=== PATIENT | female | born 1955 | race African-American/Black ===

== ENCOUNTER 2020-07-22 14:44 | Outpatient (REF) | payer MEDICARE, SELFPAY ==
[2020-07-22 16:42] LABS: Glucose Urine UA NEG (NEG); Leukocyte Esterase Urine 3+ (NEG); Nitrite Urine POS (NEG); PH 6.5 (5.0-8.0); Specific Gravity - Urine 1.015 (1.005-1.025); Urine Blood 3+ (NEG); Urine Ketones 5 MG/DL (NEG); Urine Protein 2+ MG/DL (NEG-TRACE)
[2020-07-22 16:47] LABS: Appearance Urine TURBID; Color Urine ORANGE
[2020-07-22 17:15] LABS: Bacteria Urine 3+ /LPF; Squamous Epithelial Cell Urine TRACE /LPF
== END 2020-07-22 14:45 | disposition home or self-care (01) ==
LOC: HO.HMGCLNP 14:44
PROVIDERS: Visit Provider Internal Medicine
DX: R35.0 Frequency of micturition (principal)
CPT/HCPCS: 81001; 87086; 87088; 87186

== ENCOUNTER 2020-10-08 14:56 | Outpatient (REF) | payer MEDICARE, SELFPAY ==
[2020-10-08 15:08] LABS: Glucose Urine UA NEG (NEG); Leukocyte Esterase Urine 3+ (NEG); Nitrite Urine POS (NEG); PH 6.5 (5.0-8.0); UACC Culture Trigger YES; Urine Blood 2+ (NEG); Urine Ketones NEG (NEG); Urine Protein 2+ MG/DL (NEG-TRACE)
[2020-10-08 15:10] LABS: Appearance Urine CLOUDY; Color Urine YELLOW
[2020-10-08 15:23] LABS: Bacteria Urine 3+ /LPF; Mucus Urine 1+ /LPF; Squamous Epithelial Cell Urine 1+ /LPF; WBC Urine TNTC /HPF (0-4)
== END 2020-10-08 14:57 | disposition home or self-care (01) ==
LOC: HO.LNP 14:56
PROVIDERS: Visit Provider Internal Medicine
DX: R35.0 Frequency of micturition (principal)
CPT/HCPCS: 81001; 81003; 87086; 87088; 87186

== ENCOUNTER 2020-11-13 10:15 | Inpatient (IN) | payer MEDICARE, SELFPAY ==
[2020-11-13] VITALS (7 sets, daily range): BP systolic 119–150; BP diastolic 60–75; PULSE 97–120; RESP 17–20; TEMP 36.2–36.8; O2SAT 90–97; BMI 60.2; BMI 56.2
--- NOTE | ~2020-11-13 | CT_ITS ---
EXAMINATION: CT ABDOMEN AND PELVIS WITH CONTRAST CLINICAL INFORMATION: 65-year-old female with lower abdominal and left flank pain. Rule out diverticulitis. COMPARISON: CT abdomen pelvis 07/14/2019 TECHNIQUE: Multidetector volumetric images were obtained from the superior aspect of the liver through the pubic symphysis following administration 100 mL of Omnipaque 350 intravenous contrast. Sagittal and coronal reformatted images were obtained on the technologist's workstation. Examination limited due to quantum mottle artifact from patient body habitus. This CT examination was performed using dose optimization techniques as appropriate, variously including the following: *Automated exposure control *Adjustment of mA and/or kV according to patient size (this includes techniques or standardized protocols for targeted exams where dose is matched to indication/reason for exam; i.e. extremities or head) *Use of iterative reconstruction technique DLP: 1466 mGy-cm FINDINGS: Visualized lung bases demonstrate mild dependent atelectasis. Numerous hypodensities are again noted throughout the liver, some of which demonstrate cystic characteristics and others which are too small to accurately characterize. The gallbladder is physiologically distended. Suspected sludge within the gallbladder. Fatty atrophy of the pancreas. The spleen and adrenal glands are unremarkable. Symmetrically enhancing kidneys. No hydronephrosis. Stable approximately 5 cm left renal cyst. Normal caliber loops of small bowel. There is a moderate stool burden throughout the colon. There is prominent mucosal thickening of the sigmoid colon with associated extensive diverticular changes. There is prominent pericolonic stranding in this region. Normal appendix. Nonaneurysmal abdominal aorta which demonstrates moderate atherosclerotic disease. No retroperitoneal lymphadenopathy. The bladder is decompressed and therefore not accurately evaluated. A localized area of air within the pelvis is suspected to be within the nondependent portion of the bladder, particularly when imaged in the sagittal view. A small amount of free pelvic fluid is noted. Diffuse osteopenia with degenerative changes of the spine. CT/CT abdomen pelvis w con IMPRESSION: Active diverticulitis of the sigmoid colon. No definitive abscess identified, however, a small abscess cannot be excluded. Further evaluation can be obtained with repeat imaging with oral contrast, however, I believe it would likely be more beneficial to follow-up with repeat imaging of this area in a few days status post treatment.
--- NOTE | 2020-11-13 10:46 | ED_ITS ---
HPI - Female Genitourinary General Chief complaint: Urogenital-Female Stated complaint: UTI Time Seen by Provider: 11/13/20 10:29 Source: patient Mode of arrival: ambulatory Limitations: no limitations History of Present Illness HPI Narrative: 65-year-old female who presents emergency department for evaluation of urinary tract infection like symptoms and lower abdominal pain. The patient states that she has been sick for approximately 1 week. She has noted urinary frequency and dysuria. She states she also has itchiness in her vaginal area. She denied fever but states she did have shaking chills at home. She is also complaining of abdominal pain. She points to her left lower quadrant and suprapubic area when asked to localize the pain. She describes the pain as a constant, pressure-like sensation which is 7/10 at its worst. The patient states that over the last 3 months she has had to urinary tract infection prior to that she does not have a history of frequent urinary tract infections. She was seen at an urgent care clinic and found to have a positive urinalysis and referred to the emergency department for further evaluation of her abdominal pain and possible urinary tract infection. I did review the patient's records, she was diagnosed with adenocarcinoma of the colon diagnosed June 2018 but declined further treatment. She also has a history obstructive sleep apnea/restrictive lung disease, pulmonary embolism, hypertension, COPD on 3-4 L via nasal cannula. The patient states she has not had a COVID-19 infection. She receives the [employer] COVID-19 vaccination on 11/03/2020. Related Data Home Medications Medication Instructions Recorded Confirmed albuterol sulfate 90 mcg/actuation INHALATION 05/13/20 05/13/20 aerosol inhaler diltiazem HCl 120 mg mg PO 05/13/20 05/13/20 capsule,extended release 24 hr diltiazem HCl 180 mg mg PO 05/13/20 05/13/20 capsule,extended release 24 hr, controlled fluticasone furoate 100 INHALATION 05/13/20 05/13/20 mcg/actuation blister powder for inhalation tiotropium 2.5 mcg-olodaterol 2.5 INHALATION 05/13/20 05/13/20 mcg/actuation mist for inhalation Previous Rx's Medication Instructions Recorded bupropion HCl 150 mg 24 hr tablet, 150 mg PO QAM #90 tab 04/12/20 extended release gabapentin 100 mg capsule See Rx Instructions PO .COMPLEX 09/13/20 #360 cap nitrofurantoin macrocrystal 100 mg 100 mg PO Q12H 10 Days #20 cap 10/08/20 capsule tramadol 50 mg tablet 50 mg PO DAILY PRN #30 tab 10/18/20 Allergies Allergy/AdvReac Type Severity Reaction Status Date / Time amoxicillin [AMOXICILLIN] Allergy Unknown ITCHING, Verified 11/13/20 09:34 Rash, itching lactose [LACTOSE] Allergy Unknown GI UPSET Verified 11/13/20 09:34 Review of Systems Review of Systems: Yes all other systems are reviewed and are negative [facility] Past Medical History [facility] Narrative: The patient denies tobacco, alcohol and drug use. Medical History Colon cancer History of pulmonary embolism Obstructive sleep apnea Osteoarthritis of knees, bilateral Paroxysmal atrial fibrillation Radiculopathy affecting upper extremity Surgical History History of total hysterectomy Family History Family History Other Family history non-contributory Social History Social History Alcohol intake: never Smoking Status: Former smoker Advance Directives: No Advance Directives Information Provided: Yes Patient : No Physical Exam Vital Signs: Vital Signs: Last Vital Signs Temp 98.3 F 11/13/20 10:15 Pulse 98 11/13/20 14:33 Resp 18 11/13/20 14:33 BP 150/65 H 11/13/20 14:33 Pulse Ox 90 L 11/13/20 14:33 Oxygen Flow Rate 4 11/13/20 10:15 Body Mass Index 60.2 Const: General: cooperative Nutritional Appearance: obese morbidly obese Orientation/consciousness: oriented to person and oriented to place Limitations: no limitations HENMT: Head: Yes normal to inspection, Yes normocephalic and Yes atraumatic Ears: external ears normal General nose exam: Normal external nose present Face and sinus: Yes normal facial exam Mouth: Normal oral and palatal mucosa present Throat: Yes posterior oropharynx normal Eyes: Periorbital: periorbital findings normal Eyelids: Yes eyelids normal Conjunctivae: conjunctivae normal Sclerae: sclerae normal Corneas: corneas normal Pupils: Equal, round and reactive pupils present Direct Ophthalmoscopy: normal light reflex Neck: Neck: Yes full ROM, Yes no lymphadenopathy, Yes no meningeal signs, Yes trachea midline and Yes supple Chest: Chest palpation & inspection: normal inspection of the chest and normal palpation of entire chest wall Resp: Effort & Inspection: normal respiratory effort and able to speak in complete sentences Auscultation: clear to auscultation bilaterally Cardio: Rate: regular rate Rhythm: regular rhythm Heart sounds: S1 normal heart sound present, S2 normal heart sound present and no murmurs GI: Inspection: Yes normal to inspection Palpation (GI): Soft to palpation, Tenderness to palpation present (GI) in the LLQ (Moderate) and suprapubicly (Moderate), no guarding, not rigid and No hepatosplenomegaly present : General: Yes CVA tenderness on the left (Moderate) Back/Spine/Pelvis: Back: CVA tenderness Cervical Spine: normal cervical lordosis Thoracic/Lumbar Spine: thoracic and lumbar spine normal to inspection Skin: Lesions: no lesions Rashes: no rashes Wounds: no wounds Neuro: General: oriented to person, oriented to place and no meningeal signs Cranial nerves: Yes CN's II-XII intact bilaterally and Yes Equal, round and reactive pupils present Cognition (Neuro): normal cognition Motor exam (neuro): 5/5 motor strength present throughout Extrem: General: Yes normal to inspection and Yes full ROM Psych: Appearance: well kempt Mental Status: mental status grossly normal Speech and movement: Normal speech and movement present Affect: normal affect Attitude: cooperative Thought process: Normal thought process present Thought content: Normal thought content present Course Course Course Narrative: 65-year-old female who presents emergency department for evaluation of frequency, dysuria and lower abdominal pain. Examination did reveal left lower quadrant and suprapubic tenderness as well as left-sided CVA tenderness. I did order a laboratory evaluation and CT scan of the abdomen pelvis to rule out diverticulitis versus pyelonephritis. The patient's pain was treated with Toradol 30 mg IV. She was also ordered to get normal saline IV x1 L. the was also ordered to get ceftriaxone 1 g IV for UTI. 1550: The patient's laboratory evaluation [place] [address], she was anemic with an H&H of 9.7 and 31.5 and she had an elevated platelet count of 261171. The patient's urinalysis revealed 2+ blood, positive nitrites and 2+ leukocyte esterase. Microscopic revealed 50-75 red blood cells and too numerous to count white blood cells. CT scan of the abdomen pelvis with IV contrast did not reveal pyelonephritis but the patient does have acute diverticulitis of the sigmoid colon with no definite abscess noted by the radiologist. The patient was treated with ceftriaxone 1 g IV after I received her urinalysis. Given the diagnosis of diverticulitis I will add Flagyl 500 mg IV. I will discuss the patient's presentation with the covering hospitalist. 1608: I did discuss the patient's presentation with the covering hospitalist nurse practitioner Elle Ramirez and the patient will be admitted for further management. The patient did tell me that her pain was coming back she is also having significant burning in her suprapubic area. She was ordered to get morphine 4 mg IV and Pyridium 200 mg orally. MDM - Female Genitourinary Lab Data Result diagrams: 11/13/20 11:33 11/13/20 11:33 Labs: Lab Results 11/13/20 11/13/20 11/13/20 Range/Units 11:33 11:33 11:33 WBC 17.1 H (4.8-10.8) X10*3/uL RBC 3.97 L (4.20-5.50) X10*6/uL Hgb 9.7 L (12.0-16.0) g/dl Hct 31.5 L (37-47) % MCV 79.3 L (80-98) fL MCH 24.4 L (27.0-33.0) pg MCHC 30.8 L (31.0-35.0) g/dl RDW 17.2 H (11.0-16.0) % Plt Count 452 H (160-400) X10*3/uL MPV 8.9 L (9.4-12.3) fL Immature Gran % (Auto) 0.4 (0.0-0.4) % Neut % (Auto) 77.0 H (45-73) % Lymph % (Auto) 12.1 L (20-40) % [place] % (Auto) 9.1 (2-11) % Eos % (Auto) 1.1 (0-4) % Baso % (Auto) 0.3 (0-2) % Lymph # (Auto) 2.1 (1.2-4.9) X10*3/uL [place] # (Auto) 1.6 H (0.1-1.2) X10*3/uL Eos # (Auto) 0.2 (0.0-0.4) X10*3/uL Baso # (Auto) 0.1 (0.0-0.2) X10*3/uL Abs Immat Gran (auto) 0.07 H (0.00-0.03) X10*3/uL Absolute Neuts (auto) 13.2 H (2.0-8.3) X10*3/uL Absolute Nucleated RBC 0.000 (0.0-0.012) X10*3/uL Nucleated RBC % (auto) 0.0 (0.0-0.2) /100WBC Smear Tech's Comments VERIFIED Sodium 140 (135-145) mmol/L Potassium 3.4 (3.3-5.1) mmol/L Chloride 93 L (96-108) mmol/L Carbon Dioxide 37 H (22-29) mmol/L Anion Gap 13 (12-20) BUN 10 (9-16) mg/dL Creatinine 0.64 (0.5-1.4) mg/dL Estim Creat Clear Calc 132.3 Estimated GFR > 60 Random Glucose 113 (60-115) mg/dL Lactic Acid 1.3 (0.5-2.0) mmol/L Calcium 8.5 (8.4-10.2) mg/dL Total Bilirubin 0.3 (0.0-1.0) mg/dL AST 15 (5-31) U/L ALT 15 (0-31) U/L Alkaline Phosphatase 93 (39-117) U/L Total Protein 6.5 (6.5-8.0) g/dL Albumin 3.2 L (3.5-5.0) g/dL Lipase < 4 L (8-78) U/L Urine Color Urine Appearance Urine pH (5.0-8.0) Ur Specific [place] (1.005-1.025) Urine Protein (NEG-TRACE) MG/DL Urine Glucose (UA) (NEG) MG/DL Urine Ketones (NEG) MG/DL Urine Blood (NEG) Urine Nitrite (NEG) Ur Leukocyte Esterase (NEG) Urine RBC (0) /HPF Urine WBC (0-4) /HPF Ur Squamous Epith Cells /LPF Urine Bacteria /LPF 11/13/20 Range/Units 13:03 WBC (4.8-10.8) X10*3/uL RBC (4.20-5.50) X10*6/uL Hgb (12.0-16.0) g/dl Hct (37-47) % MCV (80-98) fL MCH (27.0-33.0) pg MCHC (31.0-35.0) g/dl RDW (11.0-16.0) % Plt Count (160-400) X10*3/uL MPV (9.4-12.3) fL Immature Gran % (Auto) (0.0-0.4) % Neut % (Auto) (45-73) % Lymph % (Auto) (20-40) % [place] % (Auto) (2-11) % Eos % (Auto) (0-4) % Baso % (Auto) (0-2) % Lymph # (Auto) (1.2-4.9) X10*3/uL [place] # (Auto) (0.1-1.2) X10*3/uL Eos # (Auto) (0.0-0.4) X10*3/uL Baso # (Auto) (0.0-0.2) X10*3/uL Abs Immat Gran (auto) (0.00-0.03) X10*3/uL Absolute Neuts (auto) (2.0-8.3) X10*3/uL Absolute Nucleated RBC (0.0-0.012) X10*3/uL Nucleated RBC % (auto) (0.0-0.2) /100WBC Smear Tech's Comments Sodium (135-145) mmol/L Potassium (3.3-5.1) mmol/L Chloride (96-108) mmol/L Carbon Dioxide (22-29) mmol/L Anion Gap (12-20) BUN (9-16) mg/dL Creatinine (0.5-1.4) mg/dL Estim Creat Clear Calc Estimated GFR Random Glucose (60-115) mg/dL Lactic Acid (0.5-2.0) mmol/L Calcium (8.4-10.2) mg/dL Total Bilirubin (0.0-1.0) mg/dL AST (5-31) U/L ALT (0-31) U/L Alkaline Phosphatase (39-117) U/L Total Protein (6.5-8.0) g/dL Albumin (3.5-5.0) g/dL Lipase (8-78) U/L Urine Color DARK YELLOW Urine Appearance TURBID Urine pH 7.0 (5.0-8.0) Ur Specific [place] 1.020 (1.005-1.025) Urine Protein 3+ H (NEG-TRACE) MG/DL Urine Glucose (UA) 100 H (NEG) MG/DL Urine Ketones 5 (NEG) MG/DL Urine Blood 3+ H (NEG) Urine Nitrite POS H (NEG) Ur Leukocyte Esterase 2+ H (NEG) Urine RBC TNTC H (0) /HPF Urine WBC TNTC H (0-4) /HPF Ur Squamous Epith Cells 2+ /LPF Urine Bacteria 3+ /LPF Discharge Plan Discharge Clinical Impression: Pyelonephritis, Diverticulitis Patient Disposition: Admitted As Inpatient
[2020-11-13 11:38] LABS: Basophils Absolute Auto 0.1 X10*3/uL (0.0-0.2); Basophils Percent Auto 0.3 % (0-2); Eosinophils Absolute Auto 0.2 X10*3/uL (0.0-0.4); Eosinophils Percent Auto 1.1 % (0-4); Hematocrit 31.5 % (37-47); Hemoglobin 9.7 g/dl (12.0-16.0); Imm Gran Abs Auto 0.07 X10*3/uL (0.00-0.03); Imm Gran Pct Auto 0.4 % (0.0-0.4); Lymphocytes Absolute Auto 2.1 X10*3/uL (1.2-4.9); Lymphocytes Percent Auto 12.1 % (20-40); MANUAL DIFF FLAG SCAN; Mean Corpuscular HGB Conc 30.8 g/dl (31.0-35.0); Mean Corpuscular Hemoglobin 24.4 pg (27.0-33.0); Mean Corpuscular Volume 79.3 fL (80-98); Mean Platelet Volume 8.9 fL (9.4-12.3); Monocytes Absolute Auto 1.6 X10*3/uL (0.1-1.2); Monocytes Percent Auto 9.1 % (2-11); Neutrophils Absolute Auto 13.2 X10*3/uL (2.0-8.3); Platelet Count 452 X10*3/uL (160-400); Red Blood Count 3.97 X10*6/uL (4.20-5.50); Red Cell Distribution Width 17.2 % (11.0-16.0); SCAN SMEAR FLAG 1; White Blood Count 17.1 X10*3/uL (4.8-10.8)
[2020-11-13 12:07] LABS: Lactic Acid 1.3 mmol/L (0.5-2.0)
[2020-11-13] MEDS: 0.9 % Sodium Chloride 1,000 ML 999 ML IV (12:16)
[2020-11-13 12:17] LABS: SLIDE REVIEW VERIFIED
--- NOTE | 2020-11-13 12:21 | PC.NURSE ---
PT IS DIFFICULT STICK, NEEDED US GUIDED IV AND ONLY ABLE TO OBTAIN #22, PHLEBOTOMY CALLED FOR ADDITIONAL BLOOD CULTURES
[2020-11-13 12:28] LABS: Alanine Aminotransferase 15 U/L (0-31); Albumin Level 3.2 g/dL (3.5-5.0); Alkaline Phosphatase 93 U/L (39-117); Anion Gap 13 (12-20); Aspartate Amino Transferase 15 U/L (5-31); Bilirubin Total 0.3 mg/dL (0.0-1.0); Blood Urea Nitrogen 10 mg/dL (9-16); Calcium 8.5 mg/dL (8.4-10.2); Carbon Dioxide 37 mmol/L (22-29); Chloride 93 mmol/L (96-108); Creatinine Clr Calc Pharmacy 132.3; Estimated Glomerular Filt Rate > 60; Glucose Random 113 mg/dL (60-115); Lipase < 4 U/L (8-78); Potassium 3.4 mmol/L (3.3-5.1); Sodium 140 mmol/L (135-145); Total Protein 6.5 g/dL (6.5-8.0)
[2020-11-13] MEDS: Ketorolac Tromethamine 30 MG/ML VIAL IVPUSH (12:58)
[2020-11-13] MEDS: cefTRIAXone sodium 1 GM in 0.9 % Sodium Chloride 50 ML IV (13:19)
[2020-11-13 13:22] LABS: Glucose Urine UA 100 MG/DL (NEG); Leukocyte Esterase Urine 2+ (NEG); Nitrite Urine POS (NEG); UACC Culture Trigger YES; Urine Blood 3+ (NEG); Urine Ketones 5 MG/DL (NEG); Urine Protein 3+ MG/DL (NEG-TRACE)
[2020-11-13 13:25] LABS: Appearance Urine TURBID; Color Urine DARK YELLOW
[2020-11-13 13:34] LABS: Bacteria Urine 3+ /LPF; RBC Urine TNTC /HPF (0); Squamous Epithelial Cell Urine 2+ /LPF; WBC Urine TNTC /HPF (0-4)
[2020-11-13] MEDS: iohexoL 350 MG/ML 100 ML INFUS..BTL IV (13:52)
[2020-11-13] MEDS: Morphine Sulfate 4 MG/ML CARTRIDGE IVPUSH (16:55)
--- NOTE | 2020-11-13 16:55 | PM.IMHP ---
History of Present Illness Date of Service: 11/13/20 <Elle Perkins NP - Last Filed: 11/13/20 17:59> Chief Complaint: Abdominal pain <Elle Perkins NP - Last Filed: 11/13/20 17:59> 65-year-old woman presenting to the ER with complaints abdominal pain and urinary tract infection like symptoms. She reports over the last week she has increased urinary frequency and dysuria with vaginal itchiness. She reported chills, right upper lower quadrant abdominal pain that has been constant and pressure-like. She went to urgent care clinic and was found to have a positive urinalysis and was sent to the emergency department for further evaluation. She was noted to have an elevated white cell 17.1, fever. Chronic compensated blood gas. Abd CT showed acute sigmoid diverticulitis. Urinalysis positive for infection. She was given Rocephin, flagyl, IV fluid and pain medication. She will be admitted for further management and treatment of acute diverticulitis in urinary tract infection. <Elle Perkins NP - Last Filed: 11/13/20 17:59> Review of Systems Review of Systems: Denies any recent fever chills or decrease in appetite respiratory denies any shortness of breath coverage production cardiovascular is adjustment of any PND or edema gastrointestinal denies any dysphagia abdominal pain nausea vomiting or diarrhea genitourinary denies any dysuria frequency or hematuria musculoskeletal denies any joint pain or swelling neuropsych denies any weakness or seizures all other systems reviewed are negative <Elle Perkins NP - Last Filed: 11/13/20 17:59> [facility] Medical History: Medical History Anemia Colon cancer COVID-19 vaccine administered History of pulmonary embolism Hx of diverticulitis of colon Hx of recurrent urinary tract infection Obstructive sleep apnea Osteoarthritis of knees, bilateral Paroxysmal atrial fibrillation Pyelonephritis Radiculopathy affecting upper extremity <Elle Perkins NP - Last Filed: 11/13/20 17:59> Family History: Family History Other Family history non-contributory <Elle Perkins NP - Last Filed: 11/13/20 17:59> Surgical History: Surgical History History of total hysterectomy <Elle Perkins NP - Last Filed: 11/13/20 17:59> Social History: Social History Household Members: Family Household Members Other:: 2 Housing: Apartment Do you presently have visiting nurse or other home services: No Alcohol intake: never service: No Current occupational status: unemployed <Elle Perkins NP - Last Filed: 11/13/20 17:59> Meds Allergies/Adverse reactions: Allergies Allergy/AdvReac Type Severity Reaction Status Date / Time amoxicillin [AMOXICILLIN] Allergy Unknown ITCHING, Verified 11/30/20 01:37 Rash, itching lactose [LACTOSE] Allergy Unknown GI UPSET Verified 11/30/20 01:37 <Elle Perkins NP - Last Filed: 11/13/20 17:59> Active Medications: Current Medications Generic Name Dose Route Start Last Admin Trade Name Freq PRN Reason Stop Dose Admin Acetaminophen 650 mg 11/13/20 16:08 Acetaminophen 325 Mg Tablet PO Q6H PRN Pain, Mild (Pain Scale 1-3) Ondansetron HCl 4 mg 11/13/20 16:08 Ondansetron Hcl 4 Mg/2 Ml Vial IVPUSH Q8H PRN Nausea and Vomiting Sodium Chloride 3 ml 11/14/20 00:00 0.9 % Sodium Chloride Flush 3 M[facility] <Elle Perkins NP - Last Filed: 11/13/20 17:59> Home medications: Home Medications Medication Instructions Recorded Confirmed Last Taken Type albuterol sulfate 90 mcg/actuation INHALATION 05/13/20 11/30/20 Unknown History aerosol inhaler diltiazem HCl 120 mg 120 mg PO BID 05/13/20 11/30/20 Unknown History capsule,extended release 24 hr Arnuity Ellipta INHALATION DAILY 11/13/20 11/30/20 Unknown History Stiolto Respimat 2 puff INHALATION DAILY 11/13/20 11/30/20 Unknown History gabapentin 100 mg PO DIRECTED 11/13/20 11/30/20 Unknown History <Elle Perkins NP - Last Filed: 11/13/20 17:59> Physical Exam Vital Signs and Narrative: Vital Signs: Last Vital Signs Temp 98.3 F 11/13/20 10:15 Pulse 98 11/13/20 14:33 Resp 18 11/13/20 14:33 BP 150/65 H 11/13/20 14:33 Pulse Ox 90 L 11/13/20 14:33 Oxygen Flow Rate 4 11/13/20 10:15 Body Mass Index 60.2 <Elle Perkins NP - Last Filed: 11/13/20 17:59> Appearing in no acute distress head is normocephalic atraumatic eyes pupils are PERRLA sclera is anicteric mouth throat mucous membranes are intact and moist neck is supple no lymphadenopathy, no JVD noted lung sounds are clear to auscultation heart regular rate rhythm, clear S1, S2 positive bowel sounds, abdomen is soft, nontender, obese neuro patient is alert x3, no focal deficits <Elle Perkins NP - Last Filed: 11/13/20 17:59> Results Labs CBC and Chem 7: : 11/14/20 05:49 11/14/20 05:49 <Elle Perkins NP - Last Filed: 11/13/20 17:59> Labs: Laboratory Results - last 24 hr 11/13/20 11/13/20 11/13/20 11:33 11:33 11:33 MCV 79.3 L MCH 24.4 L MCHC 30.8 L RDW 17.2 H Plt Count 452 H MPV 8.9 L Immature Gran % (Auto) 0.4 Neut % (Auto) 77.0 H Lymph % (Auto) 12.1 L [place] % (Auto) 9.1 Eos % (Auto) 1.1 Baso % (Auto) 0.3 Lymph # (Auto) 2.1 [place] # (Auto) 1.6 H Eos # (Auto) 0.2 Baso # (Auto) 0.1 Abs Immat Gran (auto) 0.07 H Absolute Neuts (auto) 13.2 H Absolute Nucleated RBC 0.000 Nucleated RBC % (auto) 0.0 Smear Tech's Comments VERIFIED Anion Gap 13 Estim Creat Clear Calc 132.3 Estimated GFR > 60 Random Glucose 113 Lactic Acid 1.3 Calcium 8.5 Total Bilirubin 0.3 AST 15 ALT 15 Alkaline Phosphatase 93 Total Protein 6.5 Albumin 3.2 L Lipase < 4 L Urine Color Urine Appearance Urine pH Ur Specific [place] Urine Protein Urine Glucose (UA) Urine Ketones Urine Blood Urine Nitrite Ur Leukocyte Esterase Urine RBC Urine WBC Ur Squamous Epith Cells Urine Bacteria 11/13/20 13:03 MCV MCH MCHC RDW Plt Count MPV Immature Gran % (Auto) Neut % (Auto) Lymph % (Auto) [place] % (Auto) Eos % (Auto) Baso % (Auto) Lymph # (Auto) [place] # (Auto) Eos # (Auto) Baso # (Auto) Abs Immat Gran (auto) Absolute Neuts (auto) Absolute Nucleated RBC Nucleated RBC % (auto) Smear Tech's Comments Anion Gap Estim Creat Clear Calc Estimated GFR Random Glucose Lactic Acid Calcium Total Bilirubin AST ALT Alkaline Phosphatase Total Protein Albumin Lipase Urine Color DARK YELLOW Urine Appearance TURBID Urine pH 7.0 Ur Specific [place] 1.020 Urine Protein 3+ H Urine Glucose (UA) 100 H Urine Ketones 5 Urine Blood 3+ H Urine Nitrite POS H Ur Leukocyte Esterase 2+ H Urine RBC TNTC H Urine WBC TNTC H Ur Squamous Epith Cells 2+ Urine Bacteria 3+ <Elle Perkins NP - Last Filed: 11/13/20 17:59> Imaging Radiologist's Impressions: Impressions Abdomen/Pelvis CT 11/13/20 10:44 IMPRESSION: Active diverticulitis of the sigmoid colon. No definitive abscess identified, however, a small abscess cannot be excluded. Further evaluation can be obtained with repeat imaging with oral contrast, however, I believe it would likely be more beneficial to follow-up with repeat imaging of this area in a few days status post treatment. <Elle Perkins NP - Last Filed: 11/13/20 17:59> Assessment and Plan (1) Diverticulitis: Status: Resolved <Elle Perkins NP - Last Filed: 11/13/20 17:59> 65-year-old woman admitted with acute diverticulitis and urinary tract infection. Sirs. Leukocytosis, tachycardia. -follow blood cultures Acute diverticulitis. No history in the past. -Jose Alfaro -GI consultation -pain management Acute on chronic hypoxic respiratory failure. Patient with history of COPD, chronic lung disease. Abdominal CT shows lung bases with atelectasis noncompliant with BiPAP at home -continue of oxygen supplementation -CPAP -albuterol Urinary tract infection. Have been more frequent recently, last urine culture showed E coli -Rocephin -follow urine cultures Microcytic anemia. No signs of bleeding. -check iron studies WILLIS -cpap Obesity. BMI 60.2 -Discussed the importance weight loss as it may contribute to worsening of other comorbidities. DVT prophylaxis with heparin Full code Attending: Dr. Linder <Elle Perkins NP - Last Filed: 11/13/20 17:59> (2) Hx of diverticulitis of colon: Status: Acute <Elle Perkins NP - Last Filed: 11/13/20 17:59> I have seen and evaluated this patient and participated in e/m service. I have discussed the case and its management with the SPECIAL ASSEMBLIES SUPERVISOR and I agree with the findings and plan as documented in the SPECIAL ASSEMBLIES SUPERVISOR?s note. <Willian Linder MD - Last Filed: 11/30/20 17:22>
[2020-11-13] MEDS: metroNIDAZOLE/NS 500 MG/100 ML PIGGYBACK 100 MG IV ×2 (16:56→22:28)
[2020-11-13 17:10] LABS: VBG Base Excess 15.5 mmol/L; VBG HCO3 40 mmol/L (22-26); VBG pCO2 51 mmHg; VBG pO2 133 mmHg
[2020-11-13 17:13] LABS: Venous Blood Gas Refer to POC result
[2020-11-13 18:36] LABS: COVID-19 Test Negative (Negative)
[2020-11-13] MEDS: Heparin Sodium,Porcine 5,000 UNIT/ML VIAL 5000 UNIT SUBCUT (19:01)
[2020-11-13] MEDS: buPROPion HCl XL 150 MG TAB.ER.24H PO (19:01)
[2020-11-13] MEDS: 0.9 % Sodium Chloride Flush 3 ML SYRINGE IVFLUSH (22:17)
[2020-11-13] MEDS: Morphine Sulfate 2 MG/ML CARTRIDGE IVPUSH (22:21)
[2020-11-14] VITALS (11 sets, daily range): BP systolic 111–133; BP diastolic 56–65; PULSE 103–156; RESP 16–18; TEMP 36.1–36.9; O2SAT 97–100
--- NOTE | 2020-11-14 | ECG_ITS ---
Test Reason : tachycardia Blood Pressure : / mmHG Vent. Rate : 158 BPM Atrial Rate : 163 BPM P-R Int : 156 ms QRS Dur : 078 ms QT Int : 304 ms P-R-T Axes : 000 048 -80 degrees QTc Int : 492 ms Poor data quality Possible Atrial flutter with 2 to 1 block Cannot rule out Inferior infarct , age undetermined Abnormal ECG When compared to the previous EKG of No significant changes seen Referred By: Elle Perkins Electronically Signed By:HAIR RIBEIRO MD
[2020-11-14] MEDS: metroNIDAZOLE/NS 500 MG/100 ML PIGGYBACK 100 MG IV ×3 (06:11→23:31)
[2020-11-14 06:20] LABS: Basophils Percent Auto 0.3 % (0-2); Eosinophils Absolute Auto 0.3 X10*3/uL (0.0-0.4); Eosinophils Percent Auto 2.2 % (0-4); Hematocrit 31.1 % (37-47); Hemoglobin 9.4 g/dl (12.0-16.0); Imm Gran Pct Auto 0.7 % (0.0-0.4); Lymphocytes Percent Auto 13.1 % (20-40); MANUAL DIFF FLAG SCAN; Mean Corpuscular HGB Conc 30.2 g/dl (31.0-35.0); Mean Corpuscular Hemoglobin 23.9 pg (27.0-33.0); Mean Corpuscular Volume 78.9 fL (80-98); Mean Platelet Volume 9.3 fL (9.4-12.3); Monocytes Absolute Auto 1.7 X10*3/uL (0.1-1.2); Monocytes Percent Auto 11.2 % (2-11); Neutrophils Absolute Auto 11.1 X10*3/uL (2.0-8.3); Neutrophils Percent Auto 72.5 % (45-73); Red Blood Count 3.94 X10*6/uL (4.20-5.50); Red Cell Distribution Width 17.3 % (11.0-16.0); SCAN SMEAR FLAG 1; White Blood Count 15.2 X10*3/uL (4.8-10.8)
[2020-11-14 06:42] LABS: Anion Gap 13 (12-20); Blood Urea Nitrogen 11 mg/dL (9-16); Calcium 8.7 mg/dL (8.4-10.2); Carbon Dioxide 38 mmol/L (22-29); Chloride 94 mmol/L (96-108); Creatinine Clr Calc Pharmacy 117.3; Estimated Glomerular Filt Rate > 60; Glucose Random 101 mg/dL (60-115); Potassium 3.6 mmol/L (3.3-5.1); Sodium 141 mmol/L (135-145)
[2020-11-14 06:53] LABS: Platelet Count 481 X10*3/uL (160-400); SLIDE REVIEW VERIFIED
--- NOTE | 2020-11-14 07:54 | PM.GICN ---
History of Present Illness Data of Consult Service Date: 11/14/20 Requesting physician: [facility] Primary Care Provider: Sofie Owens MD [facility] Reason for consult: diverticulitis 65-year-old female with history of obesity, colon cancer, COPD, pulmonary embolism, atrial fibrillation, WILLIS and is oxygen dependent who I am asked to see for evaluation of diverticulitis. She c/o increased urinary frequency and dysuria with vaginal itchiness for 1 week. She reported chills, suprapubic and left lower quadrant abdominal pain that has been constant and pressure-like with 7/10 pain, not relieved or worsened by anything. She denies nausea, or vomiting, admits to poor appettite for a while. No fevers or chills. has noted diarrhea with loose stools for 2 months but no blood in stools, does admit to pneumaturia in urine but no fecal matter since. She went to urgent care clinic and was found to have a positive urinalysis and was sent to the emergency department for further evaluation. She was given Rocephin, flagyl, IV fluid and pain medication LABS:She was noted to have an elevated white cell 17.1, anemia (9.4 g/dl--baseline usu around 11-12 g/dl range) Urinalysis positive for infection with pos nitrite, leuk esterase, Imaging: Abd/pelvis CT with acute sigmoid diverticulitis. Of note she has untreated colon cancer, she had colonoscopy with Reggie and Dr Mustafa 2017/2018 with large peduculated polyp in the sigmoid with bx revealing invasive adenoca arising from tubular adenoma. No surgery ws attempted due to multiple co morbidities and patient choice--has been seeing Dr Jacobs for f/u with stable CT findings and CEA. She is still not interesting in aggressive treatment, more concerned about pain management. Review of Systems Review of Systems: Denies any recent fever chills or decrease in appetite respiratory denies any shortness of breath coverage production cardiovascular is adjustment of any PND or edema gastrointestinal denies any dysphagia abdominal pain nausea vomiting or diarrhea genitourinary denies any dysuria frequency or hematuria musculoskeletal denies any joint pain or swelling neuropsych denies any weakness or seizures all other systems reviewed are negative Yes all other systems are reviewed and are negative PMFSH Past Medical History Medical History (Updated 11/14/20 @ 15:38 by Maciel Orozco MD) Colon cancer COVID-19 vaccine administered History of pulmonary embolism Obstructive sleep apnea Osteoarthritis of knees, bilateral Paroxysmal atrial fibrillation Radiculopathy affecting upper extremity Family History Family History Other Family history non-contributory Surgical History Surgical History History of total hysterectomy Social History Social History Household Members: Family Household Members Other:: 2 Housing: Apartment Do you presently have visiting nurse or other home services: No Alcohol intake: never Smoking Status: Former smoker Use of substances other than those prescribed or required for medical reasons: No Currently Displaying Signs/Symptoms of Drug Intoxication Withdrawal: No Have you been hit, kicked, punched, or otherwise hurt by someone within the past year? If so, by whom?: No Do you feel safe in your current relationship?: No Current Relationship Is there a partner from a previous relationship who is making you feel unsafe now?: No Are you made to feel afraid or neglected: No Advance Directives: No Advance Directives Information Provided: Yes Do you have thoughts of harming others: None Do you have a plan to hurt others: No Plan Recently lost weight without trying: No Eating poorly because of decreased appetite: Yes Nutrition Risks: Poor intake 0-25% >4 days Patient : No : No Poor oral hygiene: No service: No Current occupational status: unemployed Meds Allergies Allergy/AdvReac Type Severity Reaction Status Date / Time amoxicillin [AMOXICILLIN] Allergy Unknown ITCHING, Verified 11/13/20 09:34 Rash, itching lactose [LACTOSE] Allergy Unknown GI UPSET Verified 11/13/20 09:34 Active Medications: Current Medications Generic Name Dose Route Start Last Admin Trade Name Freq PRN Reason Stop Dose Admin Acetaminophen 650 mg 11/13/20 16:08 Acetaminophen 325 Mg Tablet PO Q6H PRN Pain, Mild (Pain Scale 1-3) Bupropion HCl 150 mg 11/13/20 17:30 11/13/20 19:01 Bupropion Hcl Xl 150 Mg Tab.Er.24h PO 150 mg DAILY STEVEN Administration Heparin Sodium (Porcine) 5,000 unit 11/13/20 18:00 11/14/20 06:06 Heparin Sodium,Porcine 5,000 Unit/Ml Vial SUBCUT Not Given Q12H [facility] Ceftriaxone Sodium 1 gm/ 50 mls @ 100 mls/hr 11/14/20 11:00 Sodium Chloride IV Q24H STEVEN Metronidazole 500 mg in 100 mls @ 100 mls/hr 11/13/20 23:00 11/14/20 07:34 Flagyl IV Infused Q8H [facility] Infusion Melatonin 6 mg 11/13/20 23:43 Melatonin 3 Mg Tablet PO BEDTIME PRN Insomnia Morphine Sulfate 2 mg 11/13/20 17:31 11/13/20 22:21 Morphine Sulfate 2 Mg/Ml Cartridge IVPUSH 2 mg Q4H PRN Administration PAIN Ondansetron HCl 4 mg 11/13/20 16:08 Ondansetron Hcl 4 Mg/2 Ml Vial IVPUSH Q8H PRN Nausea and Vomiting Sodium Chloride 3 ml 11/14/20 00:00 11/13/20 22:17 0.9 % Sodium Chloride Flush 3 Ml Syringe IVFLUSH 3 ml QSHIFT [facility] Administration Home Medications Medication Instructions Recorded Confirmed Last Taken Type albuterol sulfate 90 mcg/actuation INHALATION 05/13/20 05/13/20 Unknown History aerosol inhaler diltiazem HCl 120 mg 120 mg PO BID 05/13/20 11/13/20 Unknown History capsule,extended release 24 hr fluticasone furoate [Arnuity INHALATION DAILY 11/13/20 Unknown History Ellipta] gabapentin 100 mg PO DIRECTED 11/13/20 11/13/20 Unknown History tiotropium-olodaterol [Stiolto 2 puff INHALATION DAILY 11/13/20 11/13/20 Unknown History Respimat] tramadol 50 mg PO NEEDED PRN 11/13/20 11/13/20 Unknown History Physical Exam Vital Signs: Vital Signs: Last Vital Signs Temp 97 F 11/14/20 07:22 Pulse 106 H 11/14/20 07:22 Resp 18 11/14/20 07:22 BP 129/60 11/14/20 07:22 Pulse Ox 99 11/14/20 07:22 Oxygen Flow Rate 4 11/13/20 10:15 Body Mass Index 56.2 Const: General: cooperative Nutritional Appearance: obese morbidly obese Orientation/consciousness: oriented to person and oriented to place Limitations: no limitations HENMT: Head: Yes normal to inspection, Yes normocephalic and Yes atraumatic Ears: external ears normal General nose exam: Normal external nose present Face and sinus: Yes normal facial exam Mouth: Normal oral and palatal mucosa present Throat: Yes posterior oropharynx normal Eyes: Periorbital: periorbital findings normal Eyelids: Yes eyelids normal Conjunctivae: conjunctivae normal Sclerae: sclerae normal Corneas: corneas normal Pupils: Equal, round and reactive pupils present Direct Ophthalmoscopy: normal light reflex Neck: Neck: Yes full ROM, Yes no lymphadenopathy, Yes no meningeal signs, Yes trachea midline and Yes supple Chest: Chest palpation & inspection: normal inspection of the chest and normal palpation of entire chest wall Resp: Effort & Inspection: normal respiratory effort and able to speak in complete sentences Auscultation: clear to auscultation bilaterally Cardio: Rate: regular rate Rhythm: regular rhythm Heart sounds: S1 normal heart sound present, S2 normal heart sound present and no murmurs GI: Inspection: Yes normal to inspection Palpation (GI): Soft to palpation, Tenderness to palpation present (GI) in the LLQ (Moderate) and suprapubicly (Moderate), not rigid and No hepatosplenomegaly present : General: Yes CVA tenderness on the left (Moderate) Back/Spine/Pelvis: Back: CVA tenderness Skin: Lesions: no lesions Rashes: no rashes Wounds: no wounds Neuro: General: oriented to person, oriented to place and no meningeal signs Cranial nerves: Yes CN's II-XII intact bilaterally and Yes Equal, round and reactive pupils present Cognition (Neuro): normal cognition Motor exam (neuro): 5/5 motor strength present throughout Extrem: General: Yes normal to inspection and Yes full ROM Psych: Appearance: well kempt Mental Status: mental status grossly normal Speech and movement: Normal speech and movement present Affect: normal affect Attitude: cooperative Thought process: Normal thought process present Thought content: Normal thought content present Results Labs CBC & Chem 7: 11/14/20 05:49 11/14/20 05:49 Labs: Short CBC 11/13/20 11/14/20 Range/Units 11:33 05:49 WBC 17.1 H 15.2 H (4.8-10.8) X10*3/uL Hgb 9.7 L 9.4 L (12.0-16.0) g/dl Hct 31.5 L 31.1 L (37-47) % Plt Count 452 H 481 H (160-400) X10*3/uL BMP 11/13/20 11/14/20 11:33 05:49 Sodium 140 141 Potassium 3.4 3.6 Chloride 93 L 94 L Carbon Dioxide 37 H 38 H BUN 10 11 Creatinine 0.64 0.69 Calcium 8.5 8.7 Liver Function 11/13/20 Range/Units 11:33 Total Bilirubin 0.3 (0.0-1.0) mg/dL AST 15 (5-31) U/L ALT 15 (0-31) U/L Alkaline Phosphatase 93 (39-117) U/L Albumin 3.2 L (3.5-5.0) g/dL Urine 11/13/20 Range/Units 13:03 Urine Color DARK YELLOW Urine Appearance TURBID Urine pH 7.0 (5.0-8.0) Ur Specific [place] 1.020 (1.005-1.025) Urine Protein 3+ H (NEG-TRACE) MG/DL Urine Glucose (UA) 100 H (NEG) MG/DL Assessment and Plan (1) Colon cancer: Status: Acute (2) Diverticulitis: Status: Acute (3) Colovesical fistula: Status: Acute 1/ Recurrent UTI with pneumaturia, suspect she has a fistula and will be prone to more UTI 2/ Colon cancer, more concerned about pain management and being comfortable 3/ anemia, no overt bleeding 4/ high risk for DVT PLAN: 1/ may need chronic low dose ABx treatment 2/ transfuse as needed for hgb<7 g/dl 3/ may need chronic lovenox prophylaxis for DVT, high risk due to neoplasia 4/ hospice and pall care involvement
[2020-11-14 09:07] LABS: Magnesium 1.9 mg/dL (1.6-2.6)
[2020-11-14] MEDS: Gabapentin 100 MG CAPSULE PO ×2 (09:35→21:36)
[2020-11-14] MEDS: dilTIAZem HCL CD 120 MG CAP.ER.DEG PO ×2 (09:35→21:36)
[2020-11-14] MEDS: buPROPion HCl XL 150 MG TAB.ER.24H PO (09:35)
[2020-11-14] MEDS: dilTIAZem HCL 50 MG/10 ML VIAL IVPUSH ×2 (09:42→11:57)
[2020-11-14] MEDS: 0.9 % Sodium Chloride Flush 3 ML SYRINGE IVFLUSH ×3 (09:42→21:43)
[2020-11-14] MEDS: Morphine Sulfate 2 MG/ML CARTRIDGE IVPUSH ×2 (09:43→16:39)
[2020-11-14] MEDS: cefTRIAXone sodium 1 GM in 0.9 % Sodium Chloride 50 ML IV (11:18)
[2020-11-14] MEDS: Gabapentin 100 MG CAPSULE 200 MG PO (11:19)
--- NOTE | 2020-11-14 11:37 | HO.PM.IMPN ---
Subjective Subjective Date of Service: 11/14/20 <Elle Perkins NP - Last Filed: 11/14/20 15:21> 11/30/20 <Willian Linder MD - Last Filed: 11/30/20 17:42> Interval History: Follow up diverticulitis and UTI Tachycardia, some sob No pain eating well no diarrhea <Elle Perkins NP - Last Filed: 11/14/20 15:21> Physical Exam Vital Signs: Vital Signs: Last Vital Signs Temp 98.4 F 11/14/20 10:37 Pulse 145 H 11/14/20 10:37 Resp 18 11/14/20 10:37 BP 111/62 11/14/20 10:37 Pulse Ox 97 11/14/20 10:37 Oxygen Flow Rate 4 11/13/20 10:15 Body Mass Index 56.2 <Elle Perkins NP - Last Filed: 11/14/20 15:21> Appearing in no acute distress lung sounds are clear to auscultation heart regular rate rhythm, tachycardia positive bowel sounds, abdomen is soft, nontender, obese neuro patient is alert x3, no focal deficits <Elle Perkins NP - Last Filed: 11/14/20 15:21> Objective Data Current Medications Generic Name Dose Route Start Last Admin Trade Name Freq PRN Reason Stop Dose Admin Acetaminophen 650 mg 11/13/20 16:08 Acetaminophen 325 Mg Tablet PO Q6H PRN Pain, Mild (Pain Scale 1-3) Bupropion HCl 150 mg 11/13/20 17:30 11/14/20 09:35 Bupropion Hcl Xl 150 Mg Tab.Er.24h PO 150 mg DAILY STEVEN Administration Diltiazem HCl 120 mg 11/14/20 09:00 11/14/20 09:35 Diltiazem Hcl Cd 120 Mg Cap.Er.Deg PO 120 mg BID STEVEN Administration Protocol Gabapentin 100 mg 11/14/20 09:00 11/14/20 09:35 Gabapentin 100 Mg Capsule PO 100 mg BID STEVEN Administration Gabapentin 200 mg 11/14/20 12:00 11/14/20 11:19 Gabapentin 100 Mg Capsule PO 200 mg DAILY@1200 STEVEN Administration Heparin Sodium (Porcine) 5,000 unit 11/13/20 18:00 11/14/20 06:06 Heparin Sodium,Porcine 5,000 Unit/Ml Vial SUBCUT Not Given Q12H STEVEN Ceftriaxone Sodium 1 gm/ 50 mls @ 100 mls/hr 11/14/20 11:00 11/14/20 11:18 Sodium Chloride IV 100 mls/hr Q24H STEVEN Administration Metronidazole 500 mg in 100 mls @ 100 mls/hr 11/13/20 23:00 11/14/20 07:34 Flagyl IV Infused Q8H STEVEN Infusion Melatonin 6 mg 11/13/20 23:43 Melatonin 3 Mg Tablet PO BEDTIME PRN Insomnia Morphine Sulfate 2 mg 11/13/20 17:31 11/14/20 09:43 Morphine Sulfate 2 Mg/Ml Cartridge IVPUSH 2 mg Q4H PRN Administration PAIN Ondansetron HCl 4 mg 11/13/20 16:08 Ondansetron Hcl 4 Mg/2 Ml Vial IVPUSH Q8H PRN Nausea and Vomiting Sodium Chloride 3 ml 11/14/20 00:00 11/14/20 09:42 0.9 % Sodium Chloride Flush 3 Ml Syringe IVFLUSH 3 ml QSHIFT STEVEN Administration Tramadol HCl 50 mg 11/14/20 08:49 Tramadol Hcl 50 Mg Tablet PO DAILY PRN pain <Elle Perkins NP - Last Filed: 11/14/20 15:21> Labs CBC & Chem 7: : 11/14/20 05:49 11/14/20 05:49 <Elle Perkins NP - Last Filed: 11/14/20 15:21> Assessment and Plan (1) Diverticulitis: Status: Resolved <Elle Perkins NP - Last Filed: 11/14/20 15:21> Assessment and Plan: 65-year-old woman admitted with acute diverticulitis and urinary tract infection. Tachycardia. Patient stated that she was without her cardizem for 2 days. -IV cardizem x2 -EKG showing ST -Continued oral cardizem -Cardiology consultation Sirs. Leukocytosis, tachycardia. -follow blood cultures Acute diverticulitis. No history in the past. -Dominic Flagyl -GI consultation -pain management Acute on chronic hypoxic respiratory failure. Patient with history of COPD, chronic lung disease. Abdominal CT shows lung bases with atelectasis noncompliant with BiPAP at home -continue of oxygen supplementation -CPAP -albuterol Urinary tract infection. Have been more frequent recently, last urine culture showed E coli -Rocephin -follow urine cultures Diarrhea. Chronic -check cdiff Hx of adenocarcinoma of colon . Declined treatment -? chronic anticoagulation, hematology consultation -pain control Microcytic anemia. No signs of bleeding. -check iron studies WILLIS -cpap Obesity. BMI 60.2 -Discussed the importance of weight loss as it may contribute to worsening of other comorbidities. DVT prophylaxis with heparin Full code Attending: Dr. Linder <Elle Perkins NP - Last Filed: 11/14/20 15:21>
--- NOTE | 2020-11-14 11:51 | ECG_ITS ---
Test Reason : CP Blood Pressure : / mmHG Vent. Rate : 144 BPM Atrial Rate : 138 BPM P-R Int : 000 ms QRS Dur : 072 ms QT Int : 330 ms P-R-T Axes : 000 056 -71 degrees QTc Int : 510 ms Atrial flutter with 2 to 1 block Cannot rule out Anterior infarct , age undetermined ST & T wave abnormality, consider inferior ischemia Abnormal ECG When compared to the previous EKG of No significant changes seen Referred By: Elle Perkins Electronically Signed By:HAIR RIBEIRO MD
--- NOTE | 2020-11-14 12:10 | MHC.CM.PN ---
CM MET WITH PT WHO REPORTS SHE LIVES WITH HER SISTER AND IS INDEPENDENT WITH HER CARE, PT DENIES HAVING SERVICES. PT REPORTS SHE HAS HOME O2 ONLY FOR DME. PT HAS A HCP ON FILE AND CONFIRMS HER PCP IS LAVERN FRAGOSO. CURRENT DC PLAN IS HOME WITH NO SERVICES PT TO SELF ARRANGE TRANSPORT
[2020-11-14 13:02] LABS: D Dimer 347 NG/ML
[2020-11-14] MEDS: Heparin Sodium,Porcine 5,000 UNIT/ML VIAL 5000 UNIT SUBCUT (16:41)
[2020-11-15] VITALS (10 sets, daily range): BP systolic 118–151; BP diastolic 59–78; PULSE 88–110; RESP 15–20; TEMP 36.1–37.2; O2SAT 94–98
--- NOTE | 2020-11-15 | ECG_ITS ---
Test Reason : CP Blood Pressure : / mmHG Vent. Rate : 115 BPM Atrial Rate : 115 BPM P-R Int : 166 ms QRS Dur : 082 ms QT Int : 288 ms P-R-T Axes : 080 080 006 degrees QTc Int : 398 ms Sinus tachycardia Nonspecific ST and T wave abnormality Abnormal ECG When compared with ECG of 14-NOV-2020 08:43, Sinus tachycardia has replaced Atrial flutter with 2 to 1 block Minimal criteria for Inferior infarct are no longer Present Non-specific change in ST segment in Inferior leads Nonspecific T wave abnormality has replaced inverted T waves in Inferior leads Referred By: Elle Perkins Electronically Signed By:HAIR RIBEIRO MD
[2020-11-15] MEDS: oxyCODONE HCl Immed Release 5 MG TABLET PO (06:16)
[2020-11-15] MEDS: Heparin Sodium,Porcine 5,000 UNIT/ML VIAL 5000 UNIT SUBCUT ×2 (06:16→17:28)
[2020-11-15] MEDS: metroNIDAZOLE/NS 500 MG/100 ML PIGGYBACK 100 MG IV ×3 (06:16→22:03)
[2020-11-15] MEDS: dilTIAZem HCL CD 120 MG CAP.ER.DEG PO ×2 (07:35→22:04)
[2020-11-15] MEDS: 0.9 % Sodium Chloride Flush 3 ML SYRINGE IVFLUSH ×3 (07:35→22:04)
[2020-11-15] MEDS: buPROPion HCl XL 150 MG TAB.ER.24H PO (07:36)
[2020-11-15] MEDS: Gabapentin 100 MG CAPSULE PO ×2 (07:36→22:04)
--- NOTE | 2020-11-15 08:52 | P.CDIC_ITS ---
CDI Concurrent Query Service Date: 11/15/20 Documentation Clarification: Please clarify if you are treating a proba ble/suspected/likely or confirmed: Chronic respiratory failure due to COPD exacerbation on home oxygen Acute on chronic respiratory failure (Treat, rule out, POA) due to COPD exacerbation Please specify if known PLEASE DO NOT DELETE/MODIFY EXISTING CONTENT Additional information is needed in order to code to the highest accuracy and appropriate Severity of Illness (SOI). Please clarify the information noted below in your progress notes and discharge summary. Risk Factors/Clinical Indicators/Treatments PN: COPD on 3-4 liters home O2. RR 18 continue oxygen at 4 liters. H&P: Assessment/plan: acute on chronic respiratory failure continue oxygen CPAP Albuterol Abnormal CT shows lung bases w atelectasis. ED: evaluation - normal respiratory effort, able to speak clear sentences. CDS: Becca Reid CCS, [facility] Contact Number: [phone] Please Review the information above and exercise your independent professional judgment in responding to the query. If you concur, pleas document in the PROGRESS NOTES and DISCHARGE SUMMARY. If you do not agree with the query, please document in the query above. THIS QUERY IS PART OF THE PERMANENT MEDICAL RECORD
[2020-11-15 10:20] LABS: CDIFF Ag Positive (Negative); CDiff Toxin Negative (Negative)
[2020-11-15 10:21] LABS: CDIFF Internal ctrl Dots and bkg OK (V)
--- NOTE | 2020-11-15 10:33 | PM.HEMONCCN ---
Subjective - Subjective Chief complaint: Consult for: Colon carcinoma. Patient: known to practice within the last 3 years Consult date: 11/15/20 Requesting Physician: Elle Perkins. Primary Care Provider: Sofie Owens MD Medical Summary: DIAGNOSIS: Colon carcinoma. HPI - Consult Narrative Reason for consult: Consult for: Colon carcinoma. Narrative: Shea Núñez is a pleasant 65 year old lady, who presented with complaints abdominal pain and urinary tract infection like symptoms. She reported over the last week she has had increased urinary frequency and dysuria with vaginal itchiness. She reported chills, right upper lower quadrant abdominal pain that has been constant and pressure-like. At the urgent care clinic and was found to have a positive urinalysis and was sent to the ED for further evaluation. Here she was noted to have a fever and an elevated white cell 17.1. Chronic compensated blood gas. Abd CT showed acute sigmoid diverticulitis. Urinalysis positive for infection. She was given Rocephin, flagyl, IV fluid and pain medication. Past medical history: She was diagnosed with Adenocarcinoma, June 2018, on colonoscopy. Pathology revealed: A. Polypoid mass, at 40 cm., biopsies: Fragments of invasive moderately differentiated Adenocarcinoma arising from a tubular adenoma. B. Polypoid tissue, biopsy: Minute fragments of fibroadipose tissue. C. Flat polypoid mass, rectum, biopsies: Fragments of tubular adenoma. She was referred to [facility] to Dr. Kenny Erwin. He did recommend surgery, however in view of the risks involved with surgery, she elected to not get treated. I rechecked CT scan of the abdomen for restaging. This was done July 14 and revealed: Segment of wall thickening involving the sigmoid colon could represent a colonic malignancy. No additional colonic abnormality. No lymphadenopathy. Hypoattenuating subcentimeter lesions throughout the liver are noted. These are similar to the prior study and while these cannot be fully characterize, the stability is reassuring. l checked a tumor marker.CEA is 3.5. PLAN: l have readdressed the situation with her and her sister. Only curative option would be for her to have surgical resection. Since she has done fairly well so far, we can readdress the issue. I discussed the case with Dr. Peterson. He can proceed with further detailed cardiac assessment. Will then be in a better position to decide about her surgical risks. She would need a colonoscopy to assess the status of the tumor. Review of Systems - Constitutional Reports system reviewed and no additional complaints, except as documented, Reports lack of energy, Denies body ache(s) - Eyes Reports system reviewed and no additional complaints, except as documented, Denies blurry vision - ENT Reports system reviewed and no additional complaints, except as documented - Cardiovascular Reports system reviewed and no additional complaints, except as documented, Denies chest pain at rest - Respiratory Reports no additional respiratory complaints, Denies chest congestion - Gastrointestinal Reports system reviewed and no additional complaints, except as documented, Reports abdominal pain, Reports change in bowel habits - Genitourinary Reports no additional female genitourinary complaints, Denies abnormal periods - Musculoskeletal Reports system reviewed and no additional complaints, except as documented, Denies loss of height - Integumentary/Breasts Skin/Breast: Reports no additional skin complaints, Denies bleeding lesions - Neurologic Reports system reviewed and no additional complaints, except as documented - Psychiatric Reports system reviewed and no additional complaints, except as documented, Denies abnormal sleep pattern - Endocrine Reports no additional endocrine complaints, Denies excessive sweating - Hematologic/Lymphatic Reports system reviewed and no additional complaints, except as documented, Denies easy bruising - Allergic/Immunologic Reports system reviewed and no additional complaints, except as documented, Reports GI upset with certain foods Oncology Screenings - ECOG Performance Status ECOG Performance Status: 1 [facility] Medical History: Medical History (Last Reviewed 11/15/20 @ 10:49 by Vadim Carty MD) Colon cancer COVID-19 vaccine administered History of pulmonary embolism Obstructive sleep apnea Osteoarthritis of knees, bilateral Paroxysmal atrial fibrillation Pyelonephritis Radiculopathy affecting upper extremity Functional capacity: uses cane/walker Patient : No Family History: Family History (Last Reviewed 11/15/20 @ 10:49 by Vadim Carty MD) Other Family history non-contributory Surgical History: Surgical History (Last Reviewed 11/15/20 @ 10:49 by Vadim Carty MD) History of total hysterectomy Social History: Social History (Last Reviewed 11/15/20 @ 10:49 by Vadim Carty MD) Living Situation History: Household Members: Family Household Members Other:: 2 Housing: Apartment Do you presently have visiting nurse or other home services: No Alcohol History: Alcohol intake: never Tobacco History: Smoking Status: Former smoker Occupation Assessmet: service: No Current occupational status: unemployed Smoking status: Former smoker Home Medications and Allergies Current Medications: Current Medications Generic Name Dose Route Start Last Admin Trade Name Sharee PRN Reason Stop Dose Admin Acetaminophen 650 mg 11/13/20 16:08 Acetaminophen 325 Mg Tablet PO Q6H PRN Pain, Mild (Pain Scale 1-3) Bupropion HCl 150 mg 11/13/20 17:30 11/15/20 07:36 Bupropion Hcl Xl 150 Mg Tab.Er.24h PO 150 mg DAILY STEVEN Administration Diltiazem HCl 120 mg 11/14/20 09:00 11/15/20 07:35 Diltiazem Hcl Cd 120 Mg Cap.Er.Deg PO 120 mg BID STEVEN Administration Protocol Gabapentin 100 mg 11/14/20 09:00 11/15/20 07:36 Gabapentin 100 Mg Capsule PO 100 mg BID STEVEN Administration Gabapentin 200 mg 11/14/20 12:00 11/14/20 11:19 Gabapentin 100 Mg Capsule PO 200 mg DAILY@1200 STEVEN Administration Heparin Sodium (Porcine) 5,000 unit 11/13/20 18:00 11/15/20 06:16 Heparin Sodium,Porcine 5,000 Unit/Ml Vial SUBCUT 5,000 unit Q12H STEVEN Administration Ceftriaxone Sodium 1 gm/ 50 mls @ 100 mls/hr 11/14/20 11:00 11/14/20 12:00 Sodium Chloride IV Infused Q24H STEVEN Infusion Metronidazole 500 mg in 100 mls @ 100 mls/hr 11/13/20 23:00 11/15/20 07:17 Flagyl IV Infused Q8H STEVEN Infusion Melatonin 6 mg 11/13/20 23:43 Melatonin 3 Mg Tablet PO BEDTIME PRN Insomnia Morphine Sulfate 2 mg 11/13/20 17:31 11/14/20 16:39 Morphine Sulfate 2 Mg/Ml Cartridge IVPUSH 2 mg Q4H PRN Administration PAIN Non-Formulary Medication 2 puff 11/15/20 09:00 Tiotropium-Olodaterol [Stiolto Respimat] INHALE DAILY STEVEN Ondansetron HCl 4 mg 11/13/20 16:08 Ondansetron Hcl 4 Mg/2 Ml Vial IVPUSH Q8H PRN Nausea and Vomiting Oxycodone HCl 5 mg 11/14/20 15:03 11/15/20 06:16 Oxycodone Hcl Immed Release 5 Mg Tablet PO 5 mg Q4H PRN Administration Pain, Mild (Pain Scale 1-3) Sodium Chloride 3 ml 11/14/20 00:00 11/15/20 07:35 0.9 % Sodium Chloride Flush 3 Ml Syringe IVFLUSH 3 ml QSHIFT STEVEN Administration Tramadol HCl 50 mg 11/14/20 08:49 Tramadol Hcl 50 Mg Tablet PO DAILY PRN pain Home Medications Medication Instructions Recorded Confirmed Type albuterol sulfate 90 mcg/actuation INHALATION 05/13/20 11/18/20 History aerosol inhaler diltiazem HCl 120 mg 120 mg PO BID 05/13/20 11/18/20 History capsule,extended release 24 hr Arnuity Ellipta INHALATION DAILY 11/13/20 11/18/20 History Stiolto Respimat 2 puff INHALATION DAILY 11/13/20 11/18/20 History gabapentin 100 mg PO DIRECTED 11/13/20 11/18/20 History tramadol 50 mg PO NEEDED PRN 11/13/20 11/18/20 History Allergies Allergy/AdvReac Type Severity Reaction Status Date / Time amoxicillin [AMOXICILLIN] Allergy Unknown ITCHING, Verified 11/13/20 09:34 Rash, itching lactose [LACTOSE] Allergy Unknown GI UPSET Verified 11/13/20 09:34 Physical Exam Vital signs: Vital Signs Temp 97.8 F 11/15/20 07:32 Pulse 98 11/15/20 07:35 Resp 18 11/15/20 07:32 BP 131/59 L 11/15/20 07:35 Pulse Ox 95 11/15/20 07:32 Intake & Output 11/14/20 11/15/20 11/15/20 18:59 06:59 18:59 Intake Total 250 / 2190 1940 / 2190 100 / 100 Balance 250 / 2190 1940 / 2190 100 / 100 Intake: Intake, Oral Amount 1840 / 1840 Intake, IV Amount 250 / 350 100 / 350 100 / 100 cefTRIAXone sodium 1 gm In 0.9 50 / 50 % Sodium Chloride 50 ml @ 100 mls/hr IV Q24H STEVEN Rx#: [id number] metroNIDAZOLE/NS 500 mg In 100 200 / 300 100 / 300 100 / 100 ml @ 100 mls/hr IV Q8H STEVEN Rx#: [id number] Other: Number of Unmeasured Voids 2 1 Number of Bowel Movements 2 Urine Bedside Commode Urine Color Red Tinged Last Bowel Movement 11/15/20 Stool Bathroom Weight 144 kg - Constitutional Present: mild distress - Routine HEENT Exam Head: Present: normal inspection ENT: Present: mucous membranes moist - Routine Neck Exam Present: supple - Routine Respiratory Exam Present: CTAB - Routine Cardiovascular Exam Cardiovascular: Present: RRR, S1, S2 - Routine Abdominal Exam Present: tenderness - Routine Rectal Exam Patient deferred: digital exam - Routine Extremities Exam Present: nontender - Routine Back/Spine/Pelvis Exam Pelvis: Absent: coccyx swelling - Routine Skin Exam Present: intact - Routine Neurological Exam Present: alert, oriented X3 - Detailed Neurological Exam: Coma Scale Eye Opening: Spontaneous (4) Verbal Response: Oriented (5) Motor Response: Obeys commands (6) Niharika Coma Scale Total: 15 - Routine Psychiatric Exam Present: normal affect Hem/Onc Consult Result - Labs CBC & Chem 7: 11/14/20 05:49 11/14/20 05:49 Assessment and Plan (1) Colon cancer Status: Resolved This is a pleasant 65-year-old lady with a history of colon cancer. She presented with shortness of breath, abdominal pain and UTI symptoms. She has underlying obstructive sleep apnea and restrictive lung disease, with hypoventilation. CTA was negative for new PE. She was diagnosed with Adenocarcinoma, June 2018, on colonoscopy. Pathology revealed: A. Polypoid mass, at 40 cm., biopsies: Fragments of invasive moderately differentiated Adenocarcinoma arising from a tubular adenoma. B. Polypoid tissue, biopsy: Minute fragments of fibroadipose tissue. C. Flat polypoid mass, rectum, biopsies: Fragments of tubular adenoma. She was referred to [facility] to Dr. Kenny Erwin. He did recommend surgery, however in view of the risks involved with surgery, she elected to not get treated. I rechecked CT scan of the abdomen for restaging. This was done July 14 and revealed: Segment of wall thickening involving the sigmoid colon could represent a colonic malignancy. No additional colonic abnormality. No lymphadenopathy. Hypoattenuating subcentimeter lesions throughout the liver are noted. These are similar to the prior study and while these cannot be fully characterize, the stability is reassuring. l checked a tumor marker.CEA is 3.5. l had readdressed the situation with her and her sister. Only curative option would be for her to have surgical resection. She had declined further treatment at that time. Since she has done fairly well so far, we can readdress the issue. I discussed the case with Dr. Peterson. He can proceed with further detailed cardiac assessment. Will then be in a better position to decide about her surgical risks. She had presented with diverticulitis and C diff colitis. She was sent home on a regimen of vancomycin. Diverticulitis. Acute, no history in the past. Treated with Rocephin and Flagyl. Seen and examined by Gastroenterology. Received Rocephin x 5 days in the hospital, in light of her c. diff will d/c on flagyl alone. Urinary tract infection. Chronic more recently. Concern for fistula. Treated with Rocephin. Urine culture grew mixed manolo. Treatment completed. If there is any further concern for fistula, she can consider following up with Urology. C diff. Patient stated chronic diarrhea. C diff culture obtained which was positive. Started treatment with oral vancomycin will continue total 10 days. Paroxysmal Aflutter. Not on anticoagulation due to GI bleed. On Cardizem, continue at home. History of colon cancer: Diagnosed in 2018/2018. Declined treatment at the time. She is more concerned about pain management then treatment of colon cancer. PLAN: I will see her as an outpatient. Then we can regroup and come to some decisions. She is willing. Will check labs, including CEA. She will return to see me in the office for a follow-up, once she is discharged. Thank you, CC: Dr. Amanda Owens. Dr. Mustafa.
--- NOTE | 2020-11-15 10:47 | P.CONCA_ITS ---
History of Present Illness History of Present Illness Date of Service: 11/15/20 Requesting physician: Elle Perkins Consult reason: other (Tachycardia) Chief complaint: UTI Narrative: We are asked to see Shea in cardiology consultation today for recurrent tachycardia. Reviewing the EKG appears to be atrial flutter with 2 is to 1 conduction. Patient has no symptoms related to the same. Came to the hospital because of bladder discomfort and change in urinary frequency as well as burning in the urine. Patient is noted to have UTI. This morning she has converted back to sinus rhythm and sinus tachycardia. She is currently getting treatment for the same. Denies any lightheadedness, chest pain. Does have chronic shortness of breath with exertion. Minimally active at home. The orthopnea, PND. She is not on oral anticoagulation prior history of atrial flutter as well as pulmonary embolism due to bleeding related to colon cancer which is not resected due to her elevated risk for perioperative pulmonary complications. Review of Systems Constitutional: Constitutional: Denies chills, Denies fatigue and Denies fever(s) Cardiovascular: Cardiovascular: Denies chest pain, Denies syncope, Denies leg edema, Denies lightheadedness, Denies Loss of Consciousness, Denies palpitations and Reports dyspnea on exertion Respiratory: Respiratory: Reports dyspnea on exertion and Reports other (Uses oxygen all the time) Gastrointestinal: Gastrointestinal: Reports no additional gastrointestinal complaints Genitourinary: Genitourinary: Reports dysuria Musculoskeletal: Musculoskeletal: Reports no additional musculoskeletal complaints Neurologic: Reports system reviewed and no additional complaints, except as documented and Denies syncope Psychiatric: Psychiatric: Reports no additional psychiatric complaints Endocrine: Endocrine: Reports no additional endocrine complaints, Denies fatigue and Denies palpitations Hematologic/Lymphatic: Hematologic/Lymphatic: Reports no additional hematologic/lymphatic complaints [facility] Past Medical History Medical History Colon cancer COVID-19 vaccine administered History of pulmonary embolism Obstructive sleep apnea Osteoarthritis of knees, bilateral Paroxysmal atrial fibrillation Radiculopathy affecting upper extremity Family History Family History Other Family history non-contributory Surgical History Surgical History History of total hysterectomy Social History Social History Household Members: Family Household Members Other:: 2 Housing: Apartment Do you presently have visiting nurse or other home services: No Alcohol intake: never Smoking Status: Former smoker Use of substances other than those prescribed or required for medical reasons: No Currently Displaying Signs/Symptoms of Drug Intoxication Withdrawal: No Have you been hit, kicked, punched, or otherwise hurt by someone within the past year? If so, by whom?: No Do you feel safe in your current relationship?: No Current Relationship Is there a partner from a previous relationship who is making you feel unsafe now?: No Are you made to feel afraid or neglected: No Advance Directives: No Advance Directives Information Provided: Yes Do you have thoughts of harming others: None Do you have a plan to hurt others: No Plan Recently lost weight without trying: No Eating poorly because of decreased appetite: Yes Nutrition Risks: Poor intake 0-25% >4 days Patient : No : No Poor oral hygiene: No service: No Current occupational status: unemployed Meds Allergies Allergy/AdvReac Type Severity Reaction Status Date / Time amoxicillin [AMOXICILLIN] Allergy Unknown ITCHING, Verified 11/13/20 09:34 Rash, itching lactose [LACTOSE] Allergy Unknown GI UPSET Verified 11/13/20 09:34 Active Medications: Current Medications Generic Name Dose Route Start Last Admin Trade Name Freq PRN Reason Stop Dose Admin Acetaminophen 650 mg 11/13/20 16:08 Acetaminophen 325 Mg Tablet PO Q6H PRN Pain, Mild (Pain Scale 1-3) Bupropion HCl 150 mg 11/13/20 17:30 11/15/20 07:36 Bupropion Hcl Xl 150 Mg Tab.Er.24h PO 150 mg DAILY STEVEN Administration Diltiazem HCl 120 mg 11/14/20 09:00 11/15/20 07:35 Diltiazem Hcl Cd 120 Mg Cap.Er.Deg PO 120 mg BID STEVEN Administration Protocol Gabapentin 100 mg 11/14/20 09:00 11/15/20 07:36 Gabapentin 100 Mg Capsule PO 100 mg BID STEVEN Administration Gabapentin 200 mg 11/14/20 12:00 11/14/20 11:19 Gabapentin 100 Mg Capsule PO 200 mg DAILY@1200 STEVEN Administration Heparin Sodium (Porcine) 5,000 unit 11/13/20 18:00 11/15/20 06:16 Heparin Sodium,Porcine 5,000 Unit/Ml Vial SUBCUT 5,000 unit Q12H STEVEN Administration Ceftriaxone Sodium 1 gm/ 50 mls @ 100 mls/hr 11/14/20 11:00 11/14/20 12:00 Sodium Chloride IV Infused Q24H STEVEN Infusion Metronidazole 500 mg in 100 mls @ 100 mls/hr 11/13/20 23:00 11/15/20 07:17 Flagyl IV Infused Q8H STEVEN Infusion Melatonin 6 mg 11/13/20 23:43 Melatonin 3 Mg Tablet PO BEDTIME PRN Insomnia Morphine Sulfate 2 mg 11/13/20 17:31 11/14/20 16:39 Morphine Sulfate 2 Mg/Ml Cartridge IVPUSH 2 mg Q4H PRN Administration PAIN Non-Formulary Medication 2 puff 11/15/20 09:00 Tiotropium-Olodaterol [Stiolto Respimat] INHALE DAILY STEVEN Ondansetron HCl 4 mg 11/13/20 16:08 Ondansetron Hcl 4 Mg/2 Ml Vial IVPUSH Q8H PRN Nausea and Vomiting Oxycodone HCl 5 mg 11/14/20 15:03 11/15/20 06:16 Oxycodone Hcl Immed Release 5 Mg Tablet PO 5 mg Q4H PRN Administration Pain, Mild (Pain Scale 1-3) Sodium Chloride 3 ml 11/14/20 00:00 11/15/20 07:35 0.9 % Sodium Chloride Flush 3 Ml Syringe IVFLUSH 3 ml QSHIFT STEVEN Administration Tramadol HCl 50 mg 11/14/20 08:49 Tramadol Hcl 50 Mg Tablet PO DAILY PRN pain Home Medications Medication Instructions Recorded Confirmed Last Taken Type albuterol sulfate 90 mcg/actuation INHALATION 05/13/20 05/13/20 Unknown History aerosol inhaler diltiazem HCl 120 mg 120 mg PO BID 05/13/20 11/13/20 Unknown History capsule,extended release 24 hr fluticasone furoate [Arnuity INHALATION DAILY 11/13/20 Unknown History Ellipta] gabapentin 100 mg PO DIRECTED 11/13/20 11/13/20 Unknown History tiotropium-olodaterol [Stiolto 2 puff INHALATION DAILY 11/13/20 11/13/20 Unknown History Respimat] tramadol 50 mg PO NEEDED PRN 11/13/20 11/13/20 Unknown History Physical Exam Vital Signs: Vital Signs: Last Vital Signs Temp 97.8 F 11/15/20 07:32 Pulse 98 11/15/20 07:35 Resp 18 11/15/20 07:32 BP 131/59 L 11/15/20 07:35 Pulse Ox 95 11/15/20 07:32 Oxygen Flow Rate 4 11/13/20 10:15 Body Mass Index 56.2 Const: General: cooperative, comfortable, no acute distress, alert and awake Nutritional Appearance: obese morbidly obese Orientation/consciousness: patient oriented x3 HENMT: Head: Yes normocephalic and Yes atraumatic Neck: Neck: Yes trachea midline, Yes supple and Yes no JVD Resp: Effort & Inspection: normal respiratory effort Auscultation: no rales, no wheezes and diminished lung sounds Cardio: Rate: regular rate Rhythm: regular rhythm Heart sounds: S1 normal heart sound present and S2 normal heart sound present GI: Inspection: Yes obesity Auscultation: normal bowel sounds Skin: General skin exam: no rashes or lesions noted Neuro: General: patient oriented x3 and no focal motor deficits Extrem: General: Yes no clubbing, cyanosis or edema Psych: Appearance: grossly normal Results Labs and Meds Result diagrams: 11/14/20 05:49 11/14/20 05:49 Lab results: Laboratory Results - last 24 hr 11/14/20 11/15/20 12:48 09:42 D-Dimer 347 C. difficile Toxin A&B Negative C. difficile Antigen Positive A C. difficile Interpret PCR to be performed EKG yesterday showed poor baseline but atrial flutter with 2 is to 1 conduction EKG this morning preliminary shows normal sinus rhythm. Assessment and Plan (1) Paroxysmal atrial flutter: Status: Acute Paroxysmal atrial flutter in middle-aged woman with multiple comorbidities, most likely induced by her acute medical illness with UTI. She has prior history of the same are happening in the past. On Cardizem therapy due to underlying COPD. She is not on oral anticoagulation despite her prior history of pulmonary embolism in atrial flutter due to prior GI bleed and subsequently noted to have colon cancer which i was not resected. So she remain s at high risk for recurrent GI bleeding and therefore not a candidate for oral anticoagulant therapy. Avoidance of stimulants was discussed. Continue Cardizem therapy. Will sign of the case. Thank you for allowing us to partake in her care Procedures Date of Service Date of Service: 11/15/20
[2020-11-15 11:11] LABS: CDiff Gene PCR POSITIVE (Negative)
[2020-11-15] MEDS: Gabapentin 100 MG CAPSULE 200 MG PO (11:27)
[2020-11-15] MEDS: cefTRIAXone sodium 1 GM in 0.9 % Sodium Chloride 50 ML IV (11:27)
[2020-11-15] MEDS: Morphine Sulfate 2 MG/ML CARTRIDGE IVPUSH ×2 (11:27→17:29)
--- NOTE | 2020-11-15 12:31 | HO.PM.IMPN ---
Subjective Subjective Date of Service: 11/15/20 Physical Exam Vital Signs: Vital Signs: Last Vital Signs Temp 99.0 F 11/15/20 12:00 Pulse 97 11/15/20 12:00 Resp 20 11/15/20 12:00 BP 126/59 L 11/15/20 12:00 Pulse Ox 94 11/15/20 12:00 Oxygen Flow Rate 4 11/13/20 10:15 Body Mass Index 56.2 Objective Data Current Medications Generic Name Dose Route Start Last Admin Trade Name Freq PRN Reason Stop Dose Admin Acetaminophen 650 mg 11/13/20 16:08 Acetaminophen 325 Mg Tablet PO Q6H PRN Pain, Mild (Pain Scale 1-3) Bupropion HCl 150 mg 11/13/20 17:30 11/15/20 07:36 Bupropion Hcl Xl 150 Mg Tab.Er.24h PO 150 mg DAILY STEVEN Administration Diltiazem HCl 120 mg 11/14/20 09:00 11/15/20 07:35 Diltiazem Hcl Cd 120 Mg Cap.Er.Deg PO 120 mg BID STEVEN Administration Protocol Gabapentin 100 mg 11/14/20 09:00 11/15/20 07:36 Gabapentin 100 Mg Capsule PO 100 mg BID STEVEN Administration Gabapentin 200 mg 11/14/20 12:00 11/15/20 11:27 Gabapentin 100 Mg Capsule PO 200 mg DAILY@1200 STEVEN Administration Heparin Sodium (Porcine) 5,000 unit 11/13/20 18:00 11/15/20 06:16 Heparin Sodium,Porcine 5,000 Unit/Ml Vial SUBCUT 5,000 unit Q12H STEVEN Administration Ceftriaxone Sodium 1 gm/ 50 mls @ 100 mls/hr 11/14/20 11:00 11/15/20 11:27 Sodium Chloride IV 100 mls/hr Q24H STEVEN Administration Metronidazole 500 mg in 100 mls @ 100 mls/hr 11/13/20 23:00 11/15/20 07:17 Flagyl IV Infused Q8H STEVEN Infusion Melatonin 6 mg 11/13/20 23:43 Melatonin 3 Mg Tablet PO BEDTIME PRN Insomnia Morphine Sulfate 2 mg 11/13/20 17:31 11/15/20 11:27 Morphine Sulfate 2 Mg/Ml Cartridge IVPUSH 2 mg Q4H PRN Administration PAIN Non-Formulary Medication 2 puff 11/15/20 09:00 Tiotropium-Olodaterol [Stiolto Respimat] INHALE DAILY STEVEN Ondansetron HCl 4 mg 11/13/20 16:08 Ondansetron Hcl 4 Mg/2 Ml Vial IVPUSH Q8H PRN Nausea and Vomiting Oxycodone HCl 5 mg 11/14/20 15:03 11/15/20 06:16 Oxycodone Hcl Immed Release 5 Mg Tablet PO 5 mg Q4H PRN Administration Pain, Mild (Pain Scale 1-3) Sodium Chloride 3 ml 11/14/20 00:00 11/15/20 07:35 0.9 % Sodium Chloride Flush 3 Ml Syringe IVFLUSH 3 ml QSHIFT STEVEN Administration Tramadol HCl 50 mg 11/14/20 08:49 Tramadol Hcl 50 Mg Tablet PO DAILY PRN pain Labs CBC & Chem 7: 11/14/20 05:49 11/14/20 05:49 Microbiology Microbiology Results: Microbiology 11/13/20 13:03 Blood - Venous Blood Culture - Preliminary No growth after 24 hours. 11/13/20 12:33 Blood - Venous Blood Culture - Preliminary No growth after 24 hours. Assessment and Plan (1) Paroxysmal atrial flutter: Status: Acute (2) Colovesical fistula: Status: Acute Assessment and Plan: 65-year-old woman admitted with acute diverticulitis and urinary tract infection. Cdiff infection -Oral vancomycin -stop imodium Vaginal yeast infection -Diflucan -topical fungal cream Hx of adenocarcinoma of colon 2017/2018. Declined treatment initially Looks like she will be following with hematology outpatient for more workup -pain control Paroxysmal atrial flutter. Patient stated that she was without her cardizem for 2 days. Now in SR No anticoagulation d/t GI bleed -IV cardizem x2 -Cardiology rec continuing cardizem Sirs. Leukocytosis, tachycardia. -follow blood cultures Acute diverticulitis. No history in the past. -Rocephichong Flagyl -GI consultation -pain management Urinary tract infection. Have been more frequent recently, last urine culture showed E coli -Rocephin -follow urine cultures Acute on chronic hypoxic respiratory failure secondary to noncompliance with bipap and Atlectasis Abdominal CT shows lung bases with atelectasis noncompliant with BiPAP at home -continue of oxygen supplementation -CPAP -albuterol Microcytic anemia. No signs of bleeding. -Hx colon ca -check iron studies WILLIS -cpap Obesity. BMI 60.2 -Discussed the importance of weight loss as it may contribute to worsening of other comorbidities. DISPO: dc tomorrow home when stable DVT prophylaxis with heparin Full code Attending:
[2020-11-15] MEDS: vancomycin HCL 125 MG CAPSULE PO ×2 (14:38→18:05)
[2020-11-15] MEDS: Fluconazole 150 MG TABLET PO (14:38)
--- NOTE | 2020-11-15 18:49 | P.DS_ITS ---
DS: Providers Provider Date of Service: 11/15/20 Date of admission: 11/13/20 20:05 Primary care physician: Sofie Owens MD Consults: 11/13/20 17:27 Consult to Gastroenterology Routine Consulting Provider: Maciel Orozco Reason for consultation: acute diverticulitis Has provider been notified: No 11/13/20 23:46 Consult Respiratory Therapy Routine Reason for consultation: pt has sleep apnea, does not want to wear CPAP 11/14/20 11:39 Consult to Cardiology Routine Consulting Provider: Seth Chowdhury Reason for consultation: tachycardia vs flutter, afib Has provider been notified: No 11/14/20 15:03 Consult to Hematology / Oncology Routine Consulting Provider: Jose Jacobs Reason for consultation: colon ca, declined tx, ? chronic dvt prophylaxis Has provider been notified: No DS: Diagnosis Discharge Diagnosis (1) Paroxysmal atrial flutter: Status: Acute (2) Colovesical fistula: Status: Acute DS: Medications Discharge Medications Home Medications: Home Medications Medication Instructions Recorded Confirmed albuterol sulfate 90 mcg/actuation INHALATION 05/13/20 05/13/20 aerosol inhaler diltiazem HCl 120 mg 120 mg PO BID 05/13/20 11/13/20 capsule,extended release 24 hr fluticasone furoate [Arnuity INHALATION DAILY 11/13/20 Ellipta] gabapentin 100 mg PO DIRECTED 11/13/20 11/13/20 tiotropium-olodaterol [Stiolto 2 puff INHALATION DAILY 11/13/20 11/13/20 Respimat] tramadol 50 mg PO NEEDED PRN 11/13/20 11/13/20 Previous Rx's Medication Instructions Recorded bupropion HCl 150 mg 24 hr tablet, 150 mg PO QAM #90 tab 04/12/20 extended release oxycodone 5 mg PO Q4H PRN #24 tab 11/15/20 DS: Summary Hospital Course Hospital Course: HP as per admitting provider 65-year-old woman presenting to the ER with complaints abdominal pain and urinary tract infection like symptoms. She reports over the last week she has increased urinary frequency and dysuria with vaginal itchiness. She reported chills, right upper lower quadrant abdominal pain that has been constant and pressure-like. She went to urgent care clinic and was found to have a positive urinalysis and was sent to the emergency department for further evaluation. She was noted to have an elevated white cell 17.1, fever. Chronic compensated blood gas. Abd CT showed acute sigmoid diverticulitis. Urinalysis positive for infection. She was given Rocephin, flagyl, IV fluid and pain medication. She will be admitted for further management and treatment of acute diverticulitis in urinary tract infection . Diverticulitis. Acute, no history in the past. Treated with Rocephin and Flagyl. Seen and examined by Gastroenterology. Will be sent home to complete 10 day treatment with Levaquin and Flagyl. Urinary tract infection. Chronic more recently. Concern for fistula. Treated with Rocephin. Urine culture grew mixed manolo. Treatment completed. If there is any further concern for fistula, she can consider following up with Urology. C diff. Patient stated chronic diarrhea. C diff culture obtained which was positive. Started treatment with oral vancomycin will continue total 10 days. Paroxysmal Afib. Not on anticoagulation due to GI bleed. On Cardizem, continue at home. History of colon cancer. Diagnosed in 2018/2018. Declined treatment at the time. Following with [facility]. At this time may decide to pursue options. Follow up with Dr. Jacobs as outpatient. At this point pain management is important to the patient. Time Spent with Patient Time attestation: Total time spent providing and/or coordinating discharge services: Physical Exam Vital Signs: Vital Signs: Last Vital Signs Temp 98.0 F 11/15/20 15:51 Pulse 88 11/15/20 15:51 Resp 15 11/15/20 15:51 BP 127/63 11/15/20 15:51 Pulse Ox 95 11/15/20 15:51 Oxygen Flow Rate 4 11/13/20 10:15 Body Mass Index 56.2 DS: Data Data Completed and Pending Labs on day of discharge: Laboratory Results - last 24 hr 11/15/20 09:42 C. difficile Tox B Gene POSITIVE A* C. difficile Toxin A&B Negative C. difficile Antigen Positive A C. difficile Interpret PCR to be performed Preliminary micro results at discharge 11/13/20 13:03 Blood Culture - Preliminary Blood - Venous No growth after 48 hours. 11/13/20 12:33 Blood Culture - Preliminary Blood - Venous No growth after 48 hours. Discharge Plan Discharge Patient Disposition: Home, Self-Care Discharge Diagnosis: Acute diverticulitis Urinary tract infection C diff infection Paroxysmal atrial flutter Acute on chronic hypoxic respiratory failure Referrals: Sofie Owens MD [Primary Care Provider] - 1 Week Jose Jacobs MD [Physician] - 1 Week Discharge Medications: New oxycodone 5 mg Tablet 5 mg PO Q4H PRN (Reason: Pain, Mild (Pain Scale 1-3)) Qty: 24 RF: 0 clotrimazole 1 % Cream 1 appl vaginal BEDTIME 3 Days Qty: 45 RF: 0 levofloxacin 750 mg tablet 750 mg PO DAILY 7 Days Qty: 7 RF: 0 vancomycin 125 mg Capsule 125 mg PO Q6H 9 Days Qty: 36 RF: 0 metronidazole [Flagyl] 500 mg tablet 500 mg PO Q8H 7 Days Qty: 21 RF: 0 Continued bupropion HCl 150 mg tablet extended release 24 hr 150 mg PO QAM Qty: 90 RF: 2 Arnuity Ellipta 100 mcg/actuation blister with device inhalation DAILY RF: 0 Stiolto Respimat 2.5-2.5 mcg/actuation mist 2 puff inhalation DAILY RF: 0 gabapentin 100 mg capsule 100 mg PO DIRECTED RF: 0 tramadol 50 mg tablet 50 mg PO NEEDED PRN (Reason: pain) RF: 0 albuterol sulfate 90 mcg/actuation HFA aerosol inhaler inhalation RF: 0 diltiazem HCl 120 mg capsule,extended release 24hr 120 mg PO BID RF: 0 Diet: advance to usual diet Activity on Discharge: As tolerated Stand Alone Forms: Patient Portal Discharge page Care Plan Goals: Resolution of C diff infection Improvement in diarrhea symptoms Health Concerns: Acute diverticulitis Urinary tract infection C diff infection Paroxysmal atrial flutter Acute on chronic hypoxic respiratory failure Plan of Treatment: Given diagnosed with Clostridium difficile infection. You will continue vancomycin for total of a 10 day treatment. Your diagnosed with diverticulitis in urinary tract infection. He will be sent home to complete treatment for this with oral antibiotics. Take all medications as prescribed Follow-up with primary care provider as needed Follow-up with your certified dental assistant for further workup for your previous diagnosis of colon cancer Assessment: See discharge summary
[2020-11-15] MEDS: Albuterol/Iprat 2.5/0.5MG 3 ML AMPUL.NEB INHALE (20:28)
[2020-11-15] MEDS: Clotrimazole 1 % Vaginal Cream 45 GM TUBE 1 APPL VAGINAL (22:04)
[2020-11-16] VITALS (8 sets, daily range): BP systolic 116–147; BP diastolic 56–68; PULSE 72–100; RESP 18–20; TEMP 36.3–37.2; O2SAT 94–99; BMI 57.8
[2020-11-16] MEDS: vancomycin HCL 125 MG CAPSULE PO ×5 (00:14→23:33)
[2020-11-16] MEDS: Heparin Sodium,Porcine 5,000 UNIT/ML VIAL 5000 UNIT SUBCUT ×2 (05:46→18:01)
[2020-11-16] MEDS: oxyCODONE HCl Immed Release 5 MG TABLET PO ×3 (05:50→21:11)
--- NOTE | 2020-11-16 06:32 | PC.NURSE ---
care assumed 23:15...awake..alert..oriented x3...oob to void..no diarhea overnight...oxycodone this am for c/o crampy abdominal discomfort...restful overnight
[2020-11-16] MEDS: metroNIDAZOLE/NS 500 MG/100 ML PIGGYBACK 100 MG IV ×3 (07:57→21:11)
[2020-11-16] MEDS: Gabapentin 100 MG CAPSULE PO ×2 (07:57→21:11)
[2020-11-16] MEDS: buPROPion HCl XL 150 MG TAB.ER.24H PO (07:57)
[2020-11-16] MEDS: dilTIAZem HCL CD 120 MG CAP.ER.DEG PO ×2 (07:57→21:11)
[2020-11-16] MEDS: 0.9 % Sodium Chloride Flush 3 ML SYRINGE IVFLUSH ×3 (07:58→23:35)
[2020-11-16] MEDS: ondansetron HCL 4 MG/2 ML VIAL IVPUSH (07:58)
[2020-11-16] MEDS: cefTRIAXone sodium 1 GM in 0.9 % Sodium Chloride 50 ML IV (11:25)
[2020-11-16] MEDS: Gabapentin 100 MG CAPSULE 200 MG PO (11:25)
--- NOTE | 2020-11-16 13:50 | MHC.CM.PN ---
Patient's discharge is placed on hold r/t CDIFF and diarrhea. Patient, nurse and MD is aware.
--- NOTE | 2020-11-16 16:24 | P.PNIM_ITS ---
Subjective Subjective Date of Service: 11/16/20 Interval History: seen and examined this afternoon does not feel well today reports nausea and inability to eat well -- d/w her RN, endorses patient is able to eat more than she reports per RN report, some watery BM, but most soft pt endorses pain d/w the patient about discharge plan today -- she does not feel comfortable enough for discharge, stating she feels that she will return back to the hospital ROS General - no fevers or chills Cardiovascular - no chest pain Respiratory - no shortness of breath or cough Abdominal- +pain, nausea/vomiting/diarrhea Physical Exam Vital Signs: Vital Signs: Last Vital Signs Temp 98.9 F 11/16/20 15:28 Pulse 93 11/16/20 15:28 Resp 20 11/16/20 15:28 BP 147/65 H 11/16/20 15:28 Pulse Ox 96 11/16/20 15:28 Oxygen Flow Rate 4 11/13/20 10:15 Body Mass Index 56.2 Neck: Other: General - no acute distress, appears comfortable Cardiovascular - regular rate and rhythm, S1-S2 Lungs - normal respiratory effort, clear to auscultation bilaterally, no wheezing Abdomen - soft, mild LLQ TTP ewithout rebound, no guarding; +BS Extremities - no edema bilaterally Neuro - awake and alert, no focal deficits Objective Data Current Medications Generic Name Dose Route Start Last Admin Trade Name Freq PRN Reason Stop Dose Admin Acetaminophen 650 mg 11/13/20 16:08 Acetaminophen 325 Mg Tablet PO Q6H PRN Pain, Mild (Pain Scale 1-3) Albuterol/Ipratropium 3 ml 11/15/20 19:52 11/15/20 20:28 Albuterol/Iprat 2.5/0.5mg 3 Ml Ampul.Neb INHALE 3 ml RQ4H PRN Administration Shortness of Breath/Wheezing Bupropion HCl 150 mg 11/13/20 17:30 11/16/20 07:57 Bupropion Hcl Xl 150 Mg Tab.Er.24h PO 150 mg DAILY STEVEN Administration Clotrimazole 1 appl 11/15/20 21:00 11/15/20 22:04 Clotrimazole 1 % Vaginal Cream 45 Gm Tube VAGINAL 1 appl BEDTIME STEVEN Administration Protocol Diltiazem HCl 120 mg 11/14/20 09:00 11/16/20 07:57 Diltiazem Hcl Cd 120 Mg Cap.Er.Deg PO 120 mg BID STEVEN Administration Protocol Gabapentin 100 mg 11/14/20 09:00 11/16/20 07:57 Gabapentin 100 Mg Capsule PO 100 mg BID STEVEN Administration Gabapentin 200 mg 11/14/20 12:00 11/16/20 11:25 Gabapentin 100 Mg Capsule PO 200 mg DAILY@1200 STEVEN Administration Heparin Sodium (Porcine) 5,000 unit 11/13/20 18:00 11/16/20 05:46 Heparin Sodium,Porcine 5,000 Unit/Ml Vial SUBCUT 5,000 unit Q12H STEVEN Administration Ceftriaxone Sodium 1 gm/ 50 mls @ 100 mls/hr 11/14/20 11:00 11/16/20 12:16 Sodium Chloride IV Infused Q24H [facility] Infusion Metronidazole 500 mg in 100 mls @ 100 mls/hr 11/13/20 23:00 11/16/20 15:09 Flagyl IV 100 mls/hr Q8H [facility] Administration Melatonin 6 mg 11/13/20 23:43 Melatonin 3 Mg Tablet PO BEDTIME PRN Insomnia Morphine Sulfate 2 mg 11/13/20 17:31 11/15/20 17:29 Morphine Sulfate 2 Mg/Ml Cartridge IVPUSH 2 mg Q4H PRN Administration PAIN Non-Formulary Medication 2 puff 11/15/20 09:00 Tiotropium-Olodaterol [Stiolto Respimat] INHALE DAILY [facility] Ondansetron HCl 4 mg 11/13/20 16:08 11/16/20 07:58 Ondansetron Hcl 4 Mg/2 Ml Vial IVPUSH 4 mg Q8H PRN Administration Nausea and Vomiting Oxycodone HCl 5 mg 11/14/20 15:03 11/16/20 15:09 Oxycodone Hcl Immed Release 5 Mg Tablet PO 5 mg Q4H PRN Administration Pain, Mild (Pain Scale 1-3) Sodium Chloride 3 ml 11/14/20 00:00 11/16/20 15:13 0.9 % Sodium Chloride Flush 3 Ml Syringe IVFLUSH 3 ml QSHIFT [facility] Administration Tramadol HCl 50 mg 11/14/20 08:49 Tramadol Hcl 50 Mg Tablet PO DAILY PRN pain Vancomycin HCl 125 mg 11/15/20 13:00 11/16/20 13:40 Vancomycin Hcl 125 Mg Capsule PO 11/25/20 12:59 125 mg Q6H STEVEN Administration Labs CBC & Chem 7: 11/14/20 05:49 11/14/20 05:49 Microbiology Microbiology Results: Microbiology 11/13/20 13:03 Blood - Venous Blood Culture - Preliminary No growth after 48 hours. 11/13/20 12:33 Blood - Venous Blood Culture - Preliminary No growth after 48 hours. Assessment and Plan (1) Paroxysmal atrial flutter: Status: Acute (2) Colovesical fistula: Status: Acute Assessment and Plan: 65-year-old woman who presented with GI complaints and was diagnosed with acute diverticulitis. She has also tested positive for C. diff 1. Acute Diverticulitis 1a. C. Diff Colitis s/p 4 days of IV rocephin / flagyl will d/c rocephin in light of her C. Diff and continue flagyl started on oral vancomcyin 11/15 -- currently day #2/10 clinically improved - transition to oral flagyl (another 3 days upon d/c) and oral vancomcyin (to complete total 10d) 2. PAFlutter currently in sinus continue cardizem seen by cardiology -- due to prior GI bleed, not a candidate for OAC 3. Possible UTI GNR in urine -- has completed 4 days of IV rocephin; being stopped in light of her C. Diff await final C&S 4. Vaginal candiasis Clotrimazole x 5-7d 5. History of colon Ca has previously opted out of treatment will need outpatient f/u with oncology should she change her mind 6. Macrocytic anemia h/h stable no evidence of major blood loss at this time 7. Acute on Chronic Hypoxic resp failure due to non compliance with O2 (as endorsed by the patient) acutely worsended due to atelactasis -- ISS and out of bed has been encouraged now at her baseline O2 8. Obesity likely playing a role in her symptoms, paticularly her respiratory failure weight and diet has been ecouraged Full Code DVT pptx, subcut. heparin Dispo: like home tomorrow. Patient continues to report poor oral intake and due to her multiple co-morbidities in addition to prevent rehospitalization, will give patient an additional 24 hours inpatient and plan for d/c tomorrow AM
[2020-11-16] MEDS: Albuterol/Iprat 2.5/0.5MG 3 ML AMPUL.NEB INHALE (18:06)
[2020-11-16] MEDS: Acetaminophen 325 MG TABLET 650 MG PO (21:11)
[2020-11-16] MEDS: Clotrimazole 1 % Vaginal Cream 45 GM TUBE 1 APPL VAGINAL (21:11)
[2020-11-17 03:12] VITALS: BP 120/60; PULSE 106; RESP 20; TEMP 36.3; O2SAT 93
[2020-11-17] MEDS: Heparin Sodium,Porcine 5,000 UNIT/ML VIAL 5000 UNIT SUBCUT (06:22)
[2020-11-17] MEDS: metroNIDAZOLE/NS 500 MG/100 ML PIGGYBACK 100 MG IV ×2 (06:23→14:15)
[2020-11-17] MEDS: vancomycin HCL 125 MG CAPSULE PO ×2 (06:23→14:09)
[2020-11-17 07:46] VITALS: BP 136/75; PULSE 95; RESP 19; TEMP 36.6; O2SAT 98
[2020-11-17] MEDS: 0.9 % Sodium Chloride Flush 3 ML SYRINGE IVFLUSH (08:07)
[2020-11-17 08:08] VITALS: BP 136/75; PULSE 98
[2020-11-17] MEDS: Gabapentin 100 MG CAPSULE PO (08:08)
[2020-11-17] MEDS: dilTIAZem HCL CD 120 MG CAP.ER.DEG PO (08:08)
[2020-11-17] MEDS: buPROPion HCl XL 150 MG TAB.ER.24H PO (08:08)
[2020-11-17] MEDS: Acetaminophen 325 MG TABLET 650 MG PO (08:21)
[2020-11-17] MEDS: Morphine Sulfate 2 MG/ML CARTRIDGE IVPUSH (08:22)
--- NOTE | 2020-11-17 08:56 | PM.DS ---
DS: Providers Provider Date of Service: 11/17/20 Date of admission: 11/13/20 20:05 Primary care physician: Sofie Owens MD Consults: 11/13/20 17:27 Consult to Gastroenterology Routine Consulting Provider: Maciel Orozco Reason for consultation: acute diverticulitis Has provider been notified: No 11/13/20 23:46 Consult Respiratory Therapy Routine Reason for consultation: pt has sleep apnea, does not want to wear CPAP 11/14/20 11:39 Consult to Cardiology Routine Consulting Provider: Seth Chowdhury Reason for consultation: tachycardia vs flutter, afib Has provider been notified: No 11/14/20 15:03 Consult to Hematology / Oncology Routine Consulting Provider: Jose Jacobs Reason for consultation: colon ca, declined tx, ? chronic dvt prophylaxis Has provider been notified: No DS: Diagnosis Discharge Diagnosis (1) Colon cancer: Status: Acute DS: Medications Discharge Medications Home Medications: Home Medications Medication Instructions Recorded Confirmed albuterol sulfate 90 mcg/actuation INHALATION 05/13/20 05/13/20 aerosol inhaler diltiazem HCl 120 mg 120 mg PO BID 05/13/20 11/13/20 capsule,extended release 24 hr Arnuity Ellipta INHALATION DAILY 11/13/20 Stiolto Respimat 2 puff INHALATION DAILY 11/13/20 11/13/20 gabapentin 100 mg PO DIRECTED 11/13/20 11/13/20 tramadol 50 mg PO NEEDED PRN 11/13/20 11/13/20 Previous Rx's Medication Instructions Recorded bupropion HCl 150 mg 24 hr tablet, 150 mg PO QAM #90 tab 04/12/20 extended release clotrimazole 1 appl VAGINAL BEDTIME 3 Days #45 g 11/15/20 metronidazole [Flagyl] 500 mg PO Q8H 7 Days #12 tab 11/15/20 oxycodone 5 mg PO Q4H PRN #24 tab 11/15/20 vancomycin 125 mg PO Q6H 9 Days #32 cap 11/15/20 DS: Summary Hospital Course Hospital Course: HP as per admitting provider 65-year-old woman presenting to the ER with complaints abdominal pain and urinary tract infection like symptoms. She reports over the last week she has increased urinary frequency and dysuria with vaginal itchiness. She reported chills, right upper lower quadrant abdominal pain that has been constant and pressure-like. She went to urgent care clinic and was found to have a positive urinalysis and was sent to the emergency department for further evaluation. She was noted to have an elevated white cell 17.1, fever. Chronic compensated blood gas. Abd CT showed acute sigmoid diverticulitis. Urinalysis positive for infection. She was given Rocephin, flagyl, IV fluid and pain medication. She will be admitted for further management and treatment of acute diverticulitis in urinary tract infection . Diverticulitis. Acute, no history in the past. Treated with Rocephin and Flagyl. Seen and examined by Gastroenterology. Received Rocephin x 5 days in the hospital, in light of her c. diff will d/c on flagyl alone. Urinary tract infection. Chronic more recently. Concern for fistula. Treated with Rocephin. Urine culture grew mixed manolo. Treatment completed. If there is any further concern for fistula, she can consider following up with Urology. C diff. Patient stated chronic diarrhea. C diff culture obtained which was positive. Started treatment with oral vancomycin will continue total 10 days. Paroxysmal Aflutter. Not on anticoagulation due to GI bleed. On Cardizem, continue at home. History of colon cancer. Diagnosed in 2018/2018. Declined treatment at the time. Following with [facility]. At this time may decide to pursue options. Follow up with Dr. Jacobs as outpatient. At this point pain management is important to the patient. Time Spent with Patient Time attestation: Total time spent providing and/or coordinating discharge services: Discharge coordination time: Greater than 30 minutes Quality: Stroke Does the patient have a stroke diagnosis?: No Physical Exam Vital Signs: Vital Signs: Last Vital Signs Temp 98 F 11/17/20 07:46 Pulse 98 11/17/20 08:08 Resp 19 11/17/20 07:46 BP 136/75 11/17/20 08:08 Pulse Ox 98 11/17/20 07:46 Oxygen Flow Rate 4 11/13/20 10:15 Body Mass Index 57.8 Const: Other: General - no acute distress, appears comfortable Cardiovascular - regular rate and rhythm, S1-S2 Lungs - normal respiratory effort, clear to auscultation bilaterally, no wheezing Abdomen - soft, nontender, no rebound or guarding Extremities - no edema bilaterally Neuro - awake and alert, no focal deficits DS: Data Data Completed and Pending Labs on day of discharge: Preliminary micro results at discharge 11/13/20 13:03 Blood Culture - Preliminary Blood - Venous No growth after 48 hours. 11/13/20 12:33 Blood Culture - Preliminary Blood - Venous No growth after 48 hours. Discharge Plan Discharge Patient Disposition: Home, Self-Care Discharge Diagnosis: Acute diverticulitis Urinary tract infection C diff infection Paroxysmal atrial flutter Acute on chronic hypoxic respiratory failure Referrals: Sofie Owens MD [Primary Care Provider] - 1 Week Jose Jacobs MD [Physician] - 1 Week Discharge Medications: New clotrimazole 1 % Cream 1 appl vaginal BEDTIME 3 Days Qty: 45 RF: 0 vancomycin 125 mg Capsule 125 mg PO Q6H 9 Days Qty: 32 RF: 0 oxycodone 5 mg Tablet 5 mg PO Q4H PRN (Reason: Pain, Mild (Pain Scale 1-3)) Qty: 24 RF: 0 metronidazole [Flagyl] 500 mg tablet 500 mg PO Q8H 7 Days Qty: 12 RF: 0 Continued bupropion HCl 150 mg tablet extended release 24 hr 150 mg PO QAM Qty: 90 RF: 2 Arnuity Ellipta 100 mcg/actuation blister with device inhalation DAILY RF: 0 Stiolto Respimat 2.5-2.5 mcg/actuation mist 2 puff inhalation DAILY RF: 0 gabapentin 100 mg capsule 100 mg PO DIRECTED RF: 0 tramadol 50 mg tablet 50 mg PO NEEDED PRN (Reason: pain) RF: 0 albuterol sulfate 90 mcg/actuation HFA aerosol inhaler inhalation RF: 0 diltiazem HCl 120 mg capsule,extended release 24hr 120 mg PO BID RF: 0 Discharge Orders: Discharge Order (Routine); Ordered 11/17/20 Ordered By: Andrew Lisa Diet: advance to usual diet Activity on Discharge: As tolerated Stand Alone Forms: Patient Portal Discharge page Care Plan Goals: Resolution of C diff infection Improvement in diarrhea symptoms Health Concerns: Acute diverticulitis Urinary tract infection C diff infection Paroxysmal atrial flutter Acute on chronic hypoxic respiratory failure Plan of Treatment: Given diagnosed with Clostridium difficile infection. You will continue vancomycin for total of a 10 day treatment. Your diagnosed with diverticulitis in urinary tract infection. He will be sent home to complete treatment for this with oral antibiotics. Take all medications as prescribed Follow-up with primary care provider as needed Follow-up with your radiology manager for further workup for your previous diagnosis of colon cancer Assessment: See discharge summary
--- NOTE | 2020-11-17 09:45 | MHC.CM.PN ---
Patient will be discharged home today, no services. patient's sister will provide transport.
[2020-11-17 11:42] VITALS: BP 142/62; PULSE 88; RESP 19; TEMP 36.4; O2SAT 95
[2020-11-17] MEDS: Gabapentin 100 MG CAPSULE 200 MG PO (13:00)
[2020-11-17 15:18] VITALS: BP 126/58; PULSE 91; RESP 18; TEMP 37; O2SAT 93
== END 2020-11-17 18:00 | disposition home or self-care (01) | DRG 371 ==
LOC: HO.ED 16:10 → HO.EDOVER 20:16 → HO.IMC 21:06
PROVIDERS: Nurse Practitioner Acute Care; Admitting Provider Hospitalist; Emergency Provider Emergency Medicine Emergency Medical Services; PCP Internal Medicine; Visit Provider Family Medicine
DX: A04.72 Enterocolitis due to Clostridium difficile, not specified as recurrent (principal); J96.21 Acute and chronic respiratory failure with hypoxia; N39.0 Urinary tract infection, site not specified; I48.92 Unspecified atrial flutter; Z68.43 Body mass index [BMI] 50.0-59.9, adult; N32.1 Vesicointestinal fistula; C18.9 Malignant neoplasm of colon, unspecified; J98.11 Atelectasis; K57.92 Diverticulitis of intestine, part unspecified, without perforation or abscess without bleeding; G47.33 Obstructive sleep apnea (adult) (pediatric); I48.0 Paroxysmal atrial fibrillation; J44.9 Chronic obstructive pulmonary disease, unspecified; D64.9 Anemia, unspecified; B37.3 Candidiasis of vulva and vagina; Z99.81 Dependence on supplemental oxygen; E66.01 Morbid (severe) obesity due to excess calories; Z20.822 Contact with and (suspected) exposure to COVID-19; Z87.891 Personal history of nicotine dependence; Z88.0 Allergy status to penicillin; Z91.19 Patient's noncompliance with other medical treatment and regimen; Z79.891 Long term (current) use of opiate analgesic; Z79.899 Other long term (current) drug therapy
CPT/HCPCS: 36415; 74177; 80048; 80053; 81001; 81003; 83605; 83690; 83735; 85025; 85379; 87040; 87086; 87324; 87449; 87493; 87635; 93005; 94640; 96365; 96367; 96372; 96375; 99285; J0696; J1885; J2270; J2405; Q9967

== ENCOUNTER 2020-11-13 10:59 | Outpatient (REF) | payer MEDICARE, SELFPAY ==
[2020-11-13 11:21] LABS: Glucose Urine UA 100 MG/DL (NEG); Leukocyte Esterase Urine 2+ (NEG); Nitrite Urine POS (NEG); UACC Culture Trigger YES; Urine Blood 2+ (NEG); Urine Ketones NEG (NEG); Urine Protein 2+ MG/DL (NEG-TRACE)
[2020-11-13 11:22] LABS: Appearance Urine TURBID; Color Urine DARK YELLOW; Specific Gravity - Urine 1.025 (1.005-1.025)
[2020-11-13 11:34] LABS: Bacteria Urine 3+ /LPF; RBC Urine 50-75 /HPF (0); Squamous Epithelial Cell Urine 2+ /LPF; WBC Urine TNTC /HPF (0-4)
== END 2020-11-13 11:00 | disposition home or self-care (01) ==
LOC: HO.LNP 10:59
PROVIDERS: Visit Provider Internal Medicine
DX: R35.0 Frequency of micturition (principal)
CPT/HCPCS: 81001; 81003; 87086

== ENCOUNTER 2020-11-26 14:10 | Outpatient (REF) | payer MEDICARE, SELFPAY ==
[2020-11-26 14:19] LABS: Glucose Urine UA NEG (NEG); Leukocyte Esterase Urine 3+ (NEG); Nitrite Urine POS (NEG); PH 6.5 (5.0-8.0); Specific Gravity - Urine 1.025 (1.005-1.025); UACC Culture Trigger YES; Urine Blood 3+ (NEG); Urine Ketones 5 MG/DL (NEG); Urine Protein 3+ MG/DL (NEG-TRACE)
[2020-11-26 14:32] LABS: Appearance Urine TURBID; Color Urine BROWN
[2020-11-26 14:33] LABS: Bacteria Urine TRACE /LPF; Squamous Epithelial Cell Urine 1+ /LPF; WBC Urine TNTC /HPF (0-4)
== END 2020-11-26 14:11 | disposition home or self-care (01) ==
LOC: HO.LNP 14:10
PROVIDERS: Visit Provider Internal Medicine
DX: Z87.440 Personal history of urinary (tract) infections (principal)
CPT/HCPCS: 81001; 81003; 87086

== ENCOUNTER 2020-12-10 17:45 | Outpatient (REF) | payer OTHER, MEDICARE, SELFPAY ==
[2020-12-11 11:53] LABS: CDIFF Ag Negative (Negative); CDIFF Internal ctrl Dots and bkg OK (V); CDiff Toxin Negative (Negative)
== END 2020-12-10 17:46 | disposition home or self-care (01) ==
LOC: HO.HVNA 17:45
PROVIDERS: Visit Provider Internal Medicine Medical Oncology
DX: C18.9 Malignant neoplasm of colon, unspecified (principal); R19.7 Diarrhea, unspecified; A04.72 Enterocolitis due to Clostridium difficile, not specified as recurrent; K57.92 Diverticulitis of intestine, part unspecified, without perforation or abscess without bleeding
CPT/HCPCS: 87324; 87449

== ENCOUNTER 2021-01-24 16:33 | Outpatient (REF) | payer OTHER, MEDICARE, SELFPAY ==
[2021-01-24 16:55] LABS: Glucose Urine UA 100 MG/DL (NEG); Leukocyte Esterase Urine 2+ (NEG); Nitrite Urine POS (NEG); PH 7.5 (5.0-8.0); Urine Blood 3+ (NEG); Urine Ketones 15 MG/DL (NEG); Urine Protein 3+ MG/DL (NEG-TRACE)
[2021-01-24 16:58] LABS: Appearance Urine TURBID; Color Urine AMBER
[2021-01-24 17:20] LABS: Bacteria Urine 4+ /LPF; Squamous Epithelial Cell Urine 4+ /LPF; WBC Urine TNTC /HPF (0-4)
== END 2021-01-24 16:34 | disposition home or self-care (01) ==
LOC: HO.LNP 16:33
PROVIDERS: Visit Provider Internal Medicine Medical Oncology
DX: R30.9 Painful micturition, unspecified (principal)
CPT/HCPCS: 81001; 87086

== ENCOUNTER 2021-02-03 17:04 | Outpatient (REF) | payer MEDICARE, SELFPAY ==
[2021-02-03 17:56] LABS: Influenza A PCR NEGATIVE (Negative); Influenza B PCR NEGATIVE (Negative); Resp Syncy Virus RNA Qual PCR NEGATIVE (Negative); SARS COV2 PCR INHOUSE NEGATIVE (Negative)
== END 2021-02-03 17:05 | disposition home or self-care (01) ==
LOC: HO.HVNA 17:04
PROVIDERS: Visit Provider Internal Medicine Hematology & Oncology
DX: Z20.822 Contact with and (suspected) exposure to COVID-19 (principal)
CPT/HCPCS: 0241U; 36415

== ENCOUNTER → 2024-03-06 14:07 | Outpatient (RCR) | payer MEDICARE, SELFPAY ==
--- NOTE | 2020-12-06 15:10 | P.PNHO_ITS ---
[facility] Telehealth - Telehealth Location of Provider rendering services: Hem/onc office. Location of Patient: Home. Patient Identification confirmed using: Name, : Yes Telehealth Method: Via telephone. Patient verbally consented to treatment: Yes. Patient verbally consented to billing insurance company: Yes Patient informed of any privacy concerns related to visit: Yes Medical Summary - Medical Summary Date of Service: 12/06/20 Chief complaint: F/U for: Colon Carcinoma. Medical Summary: DIAGNOSIS: COLON CARCINOMA. Interval History Interval history: 65 year old lady, with a history of colon cancer diagnosed June 2018. She declined any further workup or treatment, due to underlying comorbidities including COPD. She was recently admitted to the hospital in mid October. HPI: Patient presented to the ER with complaints abdominal pain and urinary tract infection like symptoms. She reports over the last week she has increased urinary frequency and dysuria with vaginal itchiness. She reported chills, right upper lower quadrant abdominal pain that has been constant and pressure- like. She went to urgent care clinic and was found to have a positive urinalysis and was sent to the emergency department for further evaluation. She was noted to have an elevated white cell 17.1, fever. Chronic compensated blood gas. Abd CT showed acute sigmoid diverticulitis. Urinalysis positive for infec tion. She was given Rocephin, flagyl, IV fluid and pain medication. She was admitted for further management and treatment of acute diverticulitis and urinary tract infection . Diverticulitis. Acute, no history in the past. Treated with Rocephin and Flagyl. Seen and examined by Gastroenterology. Received Rocephin x 5 days in the hospital, in light of her c. diff will d/c on flagyl alone. Urinary tract infection: Chronic more recently. Concern for fistula. Treated with Rocephin. Urine culture grew mixed manolo. Treatment completed. If there is any further concern for fistula, she can consider following up with Urology. C diff. Patient stated chronic diarrhea. C diff culture obtained which was positive. Started treatment with oral vancomycin will continue total 10 days. Paroxysmal Aflutter. Not on anticoagulation due to GI bleed. On Cardizem, continue at home. History of colon cancer. Diagnosed in . Declined treatment at the time. At this time may decide to pursue options. At this point pain management is important to the patient. 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 2/ Colon cancer, more concerned about pain management and being comfortable. 3/ anemia, no overt bleeding. 4/ high risk for DVT. PLAN: 1/ may need chronic low dose ABx treatment. 2/ transfuse as needed for hgb<7 g/dl. 3/ may need chronic lovenox prophylaxis for DVT, high risk due to neoplasia. 4/ hospice and pall care involvement. Past medical history: She was diagnosed with Adenocarcinoma, June 2018, on colonoscopy. Pathology revealed: A. Polypoid mass, at 40 cm., biopsies: Fragments of invasive moderately differentiated Adenocarcinoma arising from a tubular adenoma. B. Polypoid tissue, biopsy: Minute fragments of fibroadipose tissue. C. Flat polypoid mass, rectum, biopsies: Fragments of tubular adenoma. She was referred to [facility] to Dr. Kenny Erwin. He did recommend surgery, however in view of the risks involved with surgery, she elected to not get treated. I rechecked CT scan of the abdomen for restaging. This was done July 14 and revealed: Segment of wall thickening involving the sigmoid colon could represent a colonic malignancy. No additional colonic abnormality. No lymphadenopathy. Hypoattenuating subcentimeter lesions throughout the liver are noted. These are similar to the prior study and while these cannot be fully characterize, the stability is reassuring. l checked a tumor marker. CEA is 3.5. Review of Systems - Constitutional Reports no additional constitutional complaints, Reports lack of energy, Reports malaise, Reports poor appetite, Reports weight loss - Eyes Reports no additional eye complaints - ENT Reports no additional ear, nose, mouth, and throat complaints - Cardiovascular Reports no additional cardiovascular complaints - Respiratory Reports no additional respiratory complaints - Gastrointestinal Reports no additional gastrointestinal complaints, Reports abdominal pain, Reports bloating, Reports change in bowel habits, Reports diarrhea, Reports loose stools, Reports nausea - Genitourinary Reports no additional female genitourinary complaints - Musculoskeletal Reports no additional musculoskeletal complaints - Integumentary/Breasts Skin/Breast: Reports no additional skin complaints - Neurologic Reports no additional neurologic complaints - Psychiatric Reports no additional psychiatric complaints - Endocrine Reports no additional endocrine complaints - Hematologic/Lymphatic Reports no additional hematologic/lymphatic complaints - Allergic/Immunologic Reports no additional allergic/immunologic complaints Oncology Screenings - ECOG Performance Status ECOG Performance Status: 2 Home Medications and Allergies Home Medications Medication Instructions Recorded Confirmed Type albuterol sulfate 90 mcg/actuation 90 mcg INHALATION DIRECTED 05/13/20 12/06/20 History aerosol inhaler diltiazem HCl 120 mg 120 mg PO BID 05/13/20 12/06/20 History capsule,extended release 24 hr Stiolto Respimat 2 puff INHALATION DAILY 11/13/20 12/06/20 History gabapentin 100 mg PO DIRECTED 11/13/20 12/06/20 History albuterol sulfate [Ventolin HFA] INHALATION 12/06/20 12/06/20 History ferrous sulfate mg PO 12/06/20 12/06/20 History Allergies Allergy/AdvReac Type Severity Reaction Status Date / Time amoxicillin [AMOXICILLIN] Allergy Unknown ITCHING, Verified 11/30/20 01:37 Rash, itching lactose [LACTOSE] Allergy Unknown GI UPSET Verified 11/30/20 01:37 Exam - Constitutional Present: no acute distress - Routine HEENT Exam Head: Present: normal inspection Eye: Present: normal appearance ENT: Present: mucous membranes moist - Routine Neck Exam Present: full ROM - Routine Respiratory Exam Present: CTAB - Routine Cardiovascular Exam Cardiovascular: Present: RRR, S1, S2 - Routine Abdominal Exam Present: soft, nontender - Routine Rectal Exam Patient deferred: digital exam - Routine Extremities Exam Present: nontender - Routine Back/Spine/Pelvis Exam Back/Spine: Present: full ROM - Routine Skin Exam Present: intact - Routine Neurological Exam Present: alert, oriented X3 - Routine Psychiatric Exam Present: normal affect Progress Note: A/P (1) Colon cancer Status: Acute Assessment and plan: This is a pleasant 65-year-old lady with a history of colon cancer. She presented with shortness of breath, abdominal pain and UTI symptoms. She has underlying obstructive sleep apnea and restrictive lung disease, with hypoventilation. CTA was negative for new PE. She was diagnosed with Adenocarcinoma, June 2018, on colonoscopy. Pathology revealed: A. Polypoid mass, at 40 cm., biopsies: Fragments of invasive moderately differentiated Adenocarcinoma arising from a tubular adenoma. B. Polypoid tissue, biopsy: Minute fragments of fibroadipose tissue. C. Flat polypoid mass, rectum, biopsies: Fragments of tubular adenoma. She was referred to [facility] to Dr. Kenny Erwin. He did recommend surgery, however in view of the risks involved with surgery, she elected to not get treated. I rechecked CT scan of the abdomen for restaging. This was done July 14 and revealed: Segment of wall thickening involving the sigmoid colon could represent a colonic malignancy. No additional colonic abnormality. No lymphadenopathy. Hypoattenuating subcentimeter lesions throughout the liver are noted. These are similar to the prior study and while these cannot be fully characterize, the stability is reassuring. l checked a tumor marker.CEA is 3.5. l had readdressed the situation with her and her sister. Only curative option would be for her to have surgical resection. She had declined further treatment at that time. Since she has done fairly well so far, we can readdress the issue. I discussed the case with Dr. Peterson. He can proceed with further detailed cardiac assessment. Will then be in a better position to decide about her surgical risks. Database: 11/14: CBC: 15.2, hemoglobin 9.4, HCT 31.5, PLT 481. CMP: Lytes: WNL, glu 84, BUN 11, EVP [employer]ATE[employer] 0.6 9. LFTs: 0.3//. CEA from 07/21 1:3.50. She was recently in house about a month ago. She had presented with diverticulitis and C diff colitis. She was sent home on a regimen of vancomycin. Diverticulitis. Acute, no history in the past. Treated with Rocephin and Flagyl. Seen and examined by Gastroenterology. Received Rocephin x 5 days in the hospital, in light of her c. diff will d/c on flagyl alone. Urinary tract infection. Chronic more recently. Concern for fistula. Treated with Rocephin. Urine culture grew mixed manolo. Treatment completed. If there is any further concern for fistula, she can consider following up with Urology. C diff. Patient stated chronic diarrhea. C diff culture obtained which was positive. Started treatment with oral vancomycin will continue total 10 days. Paroxysmal Aflutter. Not on anticoagulation due to GI bleed. On Cardizem, continue at home. History of colon cancer: Diagnosed in 2018/2018. Declined treatment at the time. She is more concerned about pain management then treatment of colon cancer. PLAN: I discussed palliative care including hospice with her. She is willing. I made a referral to hospice team. In the meantime will send a prescription for oxycodone for the pain. Lomotil for the diarrhea. The hospice team will get back in touch with me for further prescriptions. Thank you, CC: Dr. Amanda Owens. - Time Spent With Patient Total time spent is greater than 50% in coordination of care (as documented) at patient's floor/unit and/or counseling patient: 15 - 24 minutes
--- NOTE | 2020-12-06 15:14 | MHC.HEMONC ---
Pt requested telehealth visit today instead of face to face visit. Pt called by this typewriter repairer. Clinical summary updated by this typewriter repairer. Pt states she has anal pain not relieved by tramadol. States having watery diarrhea not relieved with immodium. States she was hospitalized one week ago secondary to a fib. Pt transferred to Dr Jacobs for televisit.
--- NOTE | 2020-12-17 14:32 | MHC.HEMONC ---
pt consultant internChiqui called to request MSContin for pt. Dr Jacobs to order.
--- NOTE | 2021-01-20 15:28 | MHC.HEMONC ---
Call from Mary Alice Hermosillo, RN from [facility] at 15:20 to report that Shea is exhibiting s/s of UTI. Shea reports burning with urination. Mary Alice reports that Shea has not been taking the Macrodantin as ordered post Bactrim DS therapy. Dr Jacobs ordered urine culture to identify source of infection. Mary Alice confirmed order and will obtain specimen.
--- NOTE | 2021-01-28 14:27 | MHC.HEMONC ---
pt TERESITA RN called with request for pt to get antibiotic. She had u/a C/S a few days ago which looked very positive for UTI but cx was contaminated.Pt is having sx so Dr Melton(covering) ordered Bactim DS. Pt TERESITA BRAGG, Chiqui informed.
--- NOTE | 2021-02-07 09:24 | MHC.HEMONC ---
pt expred over the weekend per jumpbasting collar baster. Dr Jacobs advised.
== END | disposition home or self-care (01) ==
LOC: HO.ONC 12-06 15:05
PROVIDERS: Referring Provider Internal Medicine; Visit Provider Internal Medicine Medical Oncology
DX: C18.7 Malignant neoplasm of sigmoid colon (principal); A04.72 Enterocolitis due to Clostridium difficile, not specified as recurrent; I48.92 Unspecified atrial flutter; Z79.899 Other long term (current) drug therapy
CPT/HCPCS: Q3014